=== PATIENT | male | born 1950 | race Caucasian/White ===

== ENCOUNTER → 2021-12-26 10:57 | Outpatient (BNVA) | payer MEDICARE, SELFPAY | PROVIDERS: PCP Nurse Practitioner Family; Visit Provider Nurse Practitioner Family | DX: M51.36 Other intervertebral disc degeneration, lumbar region (principal); M43.06 Spondylolysis, lumbar region; M62.830 Muscle spasm of back; M41.9 Scoliosis, unspecified | CPT/HCPCS: 99202 ==

== ENCOUNTER 2022-01-14 13:42 | Inpatient (IN) | payer MEDICARE, SELFPAY ==
[2022-01-14] VITALS (11 sets, daily range): BP systolic 95–150; BP diastolic 56–100; PULSE 56–115; RESP 12–24; TEMP 36.6–37; O2SAT 92–99; BMI 28.5
--- NOTE | ~2022-01-14 | CT_ITS ---
EXAMINATION: CT LUMBAR SPINE WITHOUT CONTRAST CLINICAL INFORMATION: Trauma COMPARISON: None TECHNIQUE: Axial images through the lumbar spine without contrast. Sagittal and coronal reconstructions on the technologist workstation were performed. This CT examination was performed using dose optimization techniques as appropriate, variously including the following: *Automated exposure control *Adjustment of mA and/or kV according to patient size (this includes techniques or standardized protocols for targeted exams where dose is matched to indication/reason for exam; i.e. extremities or head) *Use of iterative reconstruction technique DLP; 697 mGy-cm FINDINGS: There is curvature of the mid lumbar spine to the right. Bone alignment is otherwise normal. No fracture or dislocation is seen. There is multilevel degenerative disc disease. There is degenerative spondylosis at L2-L3 and L3-L4. No fracture or dislocation is seen. No soft tissue foreign body is seen. At T12-L1 there is no disc herniation protrusion or bulge. Spinal canal, lateral recesses and neural foramen are patent. At L1-L2 there is air in the disc space. There is left paracentral disc bulge. No disc herniation is seen. There is a small amount of air seen posterior to the L1 vertebral body in the spinal canal, and lateral to the L1 vertebral body and spinous process. At L2-L3 there is diffuse disc bulge. No disc herniation is seen. There is mild secondary spinal stenosis due to disc bulge and short pedicles. No disc herniation is seen. There is a small amount of air seen in the spinal canal posterior to the left side of the L2 vertebral body, lateral to the L2 vertebral body and and L2 spinous process. At L3-L4 there is diffuse disc bulge. There is no disc herniation. There is mild secondary spinal stenosis due to disc bulge and short pedicles. There is a small amount of air seen lateral to the L3 vertebral body and L3 spinous process. At L4-L5 there is diffuse disc bulge. No disc herniation is seen. There is mild secondary spinal stenosis due to disc and short pedicles. At L5-S1 there is no disc herniation protrusion or bulge. Spinal canal, lateral recesses and neural foramen are patent. Paraspinal soft tissues are otherwise unremarkable. The abdominal aorta is normal in caliber. There is diverticulosis of the colon. CT/CT lumbar spine wo con IMPRESSION: Small amount of air in the left side of the spinal canal at the L1-L2 and L2-L3 levels. Small amount of air adjacent to the left L1, L2 and L3 vertebral bodies and spinous processes.
--- NOTE | ~2022-01-14 | US_ITS ---
EXAMINATION: US RETROPERITONEAL LIMITED (RENAL ONLY) CLINICAL INFORMATION: Acute kidney injury. Evaluate for obstruction.. COMPARISON: None TECHNIQUE: Grayscale and color Doppler sonographic evaluation of the kidneys was performed. FINDINGS: RIGHT KIDNEY: 11.4 x 5.3 x 5.4 cm (SAG x AP x TRV). The kidney is normal in size, contour, and echogenicity. Renal cortical thickness is normal. No calculi or focal parenchymal lesions. No hydronephrosis. LEFT KIDNEY: 10.7 x 6.1 x 5.3 cm (SAG x AP x TRV). The kidney is normal in size, contour, and echogenicity. Renal cortical thickness is normal. No calculi or focal parenchymal lesions. No hydronephrosis. US/US renal BI IMPRESSION: No hydronephrosis. Unremarkable sonographic appearance of the kidneys.
--- NOTE | ~2022-01-14 | CT_ITS ---
EXAMINATION: CT ABDOMEN AND PELVIS WITHOUT CONTRAST CLINICAL INFORMATION: Back pain, alcohol withdrawal COMPARISON: None TECHNIQUE: Multidetector volumetric imaging was performed from the superior aspect of the liver through the pubic symphysis. Sagittal and coronal reformatted images were obtained on the technologist's workstation. This CT examination was performed using dose optimization techniques as appropriate, variously including the following: *Automated exposure control *Adjustment of mA and/or kV according to patient size (this includes techniques or standardized protocols for targeted exams where dose is matched to indication/reason for exam; i.e. extremities or head) *Use of iterative reconstruction technique DLP: 1290 mGy-cm FINDINGS: LUNG BASES: There is dependent atelectasis at the bilateral lung bases. LIVER, GALLBLADDER, AND BILIARY TREE: There is decreased attenuation of the hepatic parenchyma, likely due to hepatic steatosis. Focal fatty infiltration in the inferior right hepatic lobe. The gallbladder is unremarkable with no evidence of radiopaque gallstones, gallbladder wall thickening, or obvious pericholecystic inflammatory changes. PANCREAS: Unremarkable. SPLEEN: Unremarkable. ADRENAL GLANDS: Unremarkable. KIDNEYS AND URETERS: The kidneys are normal in size, shape, and attenuation. No hydronephrosis, hydroureter, or calculi seen. No perinephric stranding. BLADDER: Unremarkable. GASTROINTESTINAL TRACT: The stomach and small bowel are not dilated. There is scattered colonic diverticulosis without evidence of diverticulitis. Normal appendix. ABDOMINAL WALL: Small fat-containing umbilical hernia. LYMPH NODES: Normal. VASCULAR: Normal caliber of the abdominal aorta. Scattered atherosclerotic calcifications. PELVIC VISCERA: Mildly enlarged prostate gland. OSSEOUS STRUCTURES: No acute or suspicious osseous abnormality. Multilevel degenerative changes of the spine and right convex curvature of the thoracolumbar spine. CT/CT abdomen pelvis wo con IMPRESSION: No acute intra-abdominal pathology. Hepatic steatosis. Colonic diverticulosis without evidence of diverticulitis. Additional chronic findings as above.
--- NOTE | ~2022-01-14 | MR_ITS ---
EXAMINATION: MR LUMBAR SPINE WITHOUT CONTRAST CLINICAL INFORMATION: Lumbar hematoma. COMPARISON: Lumbar spine CT from 01/16/2022. TECHNIQUE: MRI of the lumbar spine was obtained using routine sequences without contrast. FINDINGS: Moderately motion degraded exam. Moderate left convex curvature of the thoracolumbar junction. Moderate right convex curvature of the lower lumbar spine. Mild left lateral translation of L1 on L2. Mild right lateral translation of L4 on L5. Mild degenerative retrolisthesis of L5 on S1. Advanced degenerative disc disease from L1-L4. Moderate degenerative disc disease at all additional lumbar levels. Associated mixed Modic type discogenic endplate changes including mild Modic type I discogenic edema from T11-L1 and L3-S1. No additional suspicious marrow edema. The vertebral body heights are well-maintained. No epidural collection. The conus medullaris terminates at the level of L1-L2. The distal spinal cord is normal in appearance. Moderate subcutaneous edema within the soft tissues of the back from T12 through the sacrum. No demonstrated discrete drainable fluid collection. No additional Significant abnormalities of the paraspinal musculature. Limited evaluation of the intra-abdominal structures without significant abnormalities. The abdominal aorta is of normal contour and caliber. AXIAL SPINAL LEVELS: L1-L2: Mild diffuse disc bulge with posterior osseous ridging. There is moderate bilateral facet joint arthropathy. There is mild bilateral neural foraminal stenosis. There is no spinal canal stenosis. L2-L3: Moderate diffuse disc bulge with posterior osseous ridging. There is moderate bilateral facet joint arthropathy. There is moderate left and mild right neural foraminal stenosis. There is stenosis of the left worse than right subarticular zones with no overt spinal canal stenosis centrally. L3-L4: Moderate diffuse disc bulge with posterior osseous ridging. There is moderate bilateral facet joint arthropathy. There is moderate left and mild right neural foraminal stenosis. There is stenosis of the left worse than right subarticular zones with no overt spinal canal stenosis centrally. L4-L5: Moderate diffuse disc bulge with superimposed small central disc extrusion with slight inferior migration. There is moderate bilateral facet joint arthropathy. There is moderate bilateral neural foraminal stenosis. There is stenosis of the subarticular zones with mild spinal canal stenosis centrally. L5-S1: Moderate diffuse disc bulge. There is moderate right and mild left facet joint arthropathy. There is severe right and moderate left neural foraminal stenosis. There is stenosis of the right subarticular zone with no overt spinal canal stenosis centrally. MR/MR lumbar spine wo con IMPRESSION: Moderate multilevel degenerative spondyloarthropathy of the lumbar spine as described in detail above. Most notably, there is mild spinal canal stenosis at L4-L5. Narrowing/stenoses of the subarticular zones from L2-S1. Moderate to severe neural foraminal stenoses from L2-S1 (worst on the right at L5-S1).
--- NOTE | ~2022-01-14 | XR_ITS ---
EXAMINATION: XR CHEST CLINICAL INFORMATION: Nausea and vomiting COMPARISON: None TECHNIQUE: Frontal view of the chest was obtained. FINDINGS: Cardiac silhouette is normal in size. The lungs are well aerated. There is no lobar consolidation. No pleural effusion or pneumothorax. XR/XR chest 1V IMPRESSION: No acute pulmonary pathology.
--- NOTE | ~2022-01-14 | CT_ITS ---
EXAMINATION: CT HEAD WITHOUT CONTRAST CLINICAL INFORMATION: Subarachnoid bleed. COMPARISON: Head CT 01/14/2022. TECHNIQUE: Contiguous axial imaging was performed from the skull base to vertex without intravenous administration of contrast. This CT examination was performed using dose optimization techniques as appropriate, variously including the following: *Automated exposure control *Adjustment of mA and/or kV according to patient size (this includes techniques or standardized protocols for targeted exams where dose is matched to indication/reason for exam; i.e. extremities or head) *Use of iterative reconstruction technique DLP: 820 mGy-cm. FINDINGS: There is no intracranial hemorrhage, large infarction, or mass lesion. There is no extra-axial collection. The ventricles are normal in size and configuration without evidence of hydrocephalus. Mild patchy hypoattenuation is seen within the cerebral white matter. The visualized paranasal sinuses and mastoid air cells are clear. CT/CT head/brain wo con IMPRESSION: No acute intracranial abnormality. Specifically, no subarachnoid hemorrhage is seen.
--- NOTE | ~2022-01-14 | CT_ITS ---
EXAMINATION: CT HEAD WITHOUT CONTRAST CLINICAL INFORMATION: Nausea, vomiting and altered mental status. COMPARISON: None TECHNIQUE: Contiguous axial imaging was performed from the skull base to vertex without intravenous administration of contrast. This CT examination was performed using dose optimization techniques as appropriate, variously including the following: *Automated exposure control *Adjustment of mA and/or kV according to patient size (this includes techniques or standardized protocols for targeted exams where dose is matched to indication/reason for exam; i.e. extremities or head) *Use of iterative reconstruction technique DLP: 896 mGy-cm FINDINGS: There is no evidence of acute intracranial hemorrhage or territorial infarction. No abnormal mass effect or midline shift is seen. Cardona to white matter differentiation is well preserved. No extra-axial fluid collections are identified. The ventricles are normal in size. There is no abnormal attenuation within the brain parenchyma. The osseous structures and soft tissues are normal. The mastoid air cells and visualized portions of the paranasal sinuses are well aerated. CT/CT head/brain wo con IMPRESSION: No acute intracranial process seen.
--- NOTE | ~2022-01-14 | XR_ITS ---
EXAMINATION: XR CHEST CLINICAL INFORMATION: New hypoxia. Question CHF. COMPARISON: 01/14/2022 TECHNIQUE: Frontal view of the chest was obtained. FINDINGS: Cardiac leads overlie the chest. The lungs are well expanded. Mild interstitial prominence which is increased from previous. No pleural effusion or pneumothorax. No dense consolidation. The cardiomediastinal silhouette is unchanged. XR/XR chest 1V IMPRESSION: Mild interstitial prominence which is increased from prior. This suggests mild edema.
--- NOTE | ~2022-01-14 | XR_ITS ---
EXAMINATION: XR CHEST CLINICAL INFORMATION: Endotracheal tube placement COMPARISON: Previous day TECHNIQUE: Frontal view of the chest was obtained. FINDINGS: Endotracheal tube terminates 4.3 cm above the ahmet. Enteric tube terminates in the left upper quadrant in the expected location of the stomach. Bilateral lower lung streaky airspace opacities. No large pleural effusion. No pneumothorax. Stable cardiomediastinal silhouette. XR/XR chest 1V IMPRESSION: Endotracheal tube terminates 4.3 cm above the ahmet. Bilateral lower lung streaky airspace opacities, likely subsegmental atelectasis.
--- NOTE | 2022-01-14 14:06 | ECG_ITS ---
Test Reason : ETOH Blood Pressure : / mmHG Vent. Rate : 078 BPM Atrial Rate : 078 BPM P-R Int : 162 ms QRS Dur : 096 ms QT Int : 400 ms P-R-T Axes : 041 -37 018 degrees QTc Int : 456 ms Normal sinus rhythm Left axis deviation Low voltage QRS Incomplete right bundle branch block Abnormal ECG No previous ECGs available Referred By: Margaux Camp Electronically Signed By:THOMAS GOODE
[2022-01-14] MEDS: ondansetron HCL 4 MG/2 ML VIAL IVPUSH (14:13)
[2022-01-14] MEDS: 0.9 % Sodium Chloride 1,000 ML 999 ML IVCONT ×3 (14:13→15:45)
[2022-01-14] MEDS: LORazepam 2 MG/ML VIAL IVPUSH ×3 (14:13→22:55)
[2022-01-14 14:38] LABS: MANUAL DIFF FLAG NO
[2022-01-14 14:40] LABS: Basophils Absolute Auto 0.2 X10*3/uL (0.0-0.2); Basophils Percent Auto 1.7 % (0-2); Eosinophils Percent Auto 0.4 % (0-4); Hematocrit 41.2 % (42.0-52.0); Hemoglobin 13.9 g/dl (14.0-18.0); Imm Gran Abs Auto 0.03 X10*3/uL (0.00-0.03); Imm Gran Pct Auto 0.3 % (0.0-0.4); Lymphocytes Absolute Auto 1.3 X10*3/uL (1.2-4.9); Lymphocytes Percent Auto 14.1 % (20-40); Mean Corpuscular HGB Conc 33.7 g/dl (31.0-36.0); Mean Corpuscular Hemoglobin 32.9 pg (27.0-33.0); Mean Corpuscular Volume 97.4 fL (80.0-98.0); Monocytes Absolute Auto 0.9 X10*3/uL (0.1-1.2); Monocytes Percent Auto 9.7 % (2-11); Neutrophils Percent Auto 73.8 % (45-73); Platelet Count 194 X10*3/uL (160-400); Red Blood Count 4.23 X10*6/uL (4.60-5.80); Red Cell Distribution Width 12.3 % (11.0-16.0); White Blood Count 9.5 X10*3/uL (4.8-10.8)
[2022-01-14 14:57] LABS: Ethanol < 10 mg/dL
[2022-01-14 15:01] LABS: Troponin-I High Sensitivity < 3.5 ng/L (<3.5-35.0)
[2022-01-14 15:02] LABS: Alanine Aminotransferase 58 U/L (0-40); Albumin Level 4.5 g/dL (3.5-5.0); Alkaline Phosphatase 78 U/L (39-117); Anion Gap 25 (12-20); Aspartate Amino Transferase 55 U/L (5-37); Bilirubin Total 1.4 mg/dL (0.0-1.0); Blood Urea Nitrogen 40 mg/dL (9-16); Calcium 10.1 mg/dL (8.4-10.2); Carbon Dioxide 19 mmol/L (22-29); Chloride 105 mmol/L (96-108); Creatinine Clr Calc Pharmacy 19.5; Estimated Glomerular Filt Rate 17; Glucose Random 200 mg/dL (60-115); Magnesium 2.7 mg/dL (1.6-2.6); Potassium 4.6 mmol/L (3.3-5.1); Sodium 144 mmol/L (135-145); Total Protein 7.8 g/dL (6.5-8.0)
--- NOTE | 2022-01-14 15:17 | ED_ITS ---
HPI - Alcohol General Chief Complaint: ETOH/Substance Use Stated Complaint: tremors, etoh Time Seen by Provider: 01/14/22 14:06 Source: patient, family and EMS Mode of arrival: EMS Limitations: no limitations History of Present Illness HPI narrative: 71-year-old male with a past medical history of Hypertension, hyperlipidemia, lumbar spondylosis/chronic back pain, GERD, alcohol abuse where his who is at bedside reports that he drinks approximately 8-10 drinks a day including beer/ wine/ shots last drink was last night who has a history of alcohol withdrawal seizures and hospitalization approximately 4 years ago presenting to the ED via EMS with complaints of diaphoresis, nausea/ vomiting and abdominal cramping /lower back pain for the past 3 days with decreased urine output. he reports associated tremors. He denies any dizziness, headaches, neck pain / stiffness, trouble swallowing or breathing, chest pain or shortness of breath, dyspnea on exertion, orthopnea, palpitations, paresthesias, dysuria, hematuria, abnormal penile discharge, recent travel or sick contacts, recent hospitalization, recent antibiotic usage or bad food exposure or any other symptoms complaints or concerns at this time. he denied any drug usage. MD complaint: alcohol withdrawal Last drink: Hours (ago) ( yesterday night) Amount of alcohol consumed: approximately 8-10 drinks a day which include beer / wine/shots of alcohol Chronic alcohol use: Yes Previous visits for alcohol intoxication: No Recent trauma: No Associated symptoms: nausea, vomiting, diaphoresis, tremors, abdominal pain and other ( and back pain) Treatments prior to arrival: none Related Data Home Medications Medication Instructions Recorded Confirmed Bacillus coagulans 250 million 250 cell PO DAILY 12/26/21 01/14/22 cell chewable tablet atorvastatin 40 mg tablet 40 mg PO DAILY 12/26/21 01/14/22 clonidine HCl 0.1 mg tablet 0.1 mg PO BID 12/26/21 01/14/22 finasteride 5 mg tablet 5 mg PO Q48H 12/26/21 01/14/22 multivitamin 1 tab PO DAILY 12/26/21 01/14/22 olmesartan 40 mg tablet 40 mg PO DAILY 12/26/21 01/14/22 omeprazole 20 mg capsule,delayed 20 mg PO BID 12/26/21 01/14/22 release propranolol 20 mg tablet 20 mg PO BID 12/26/21 01/14/22 tizanidine 4 mg tablet 4 mg PO BID 12/26/21 01/14/22 Previous Rx's Medication Instructions Recorded baclofen 20 mg tablet 20 mg PO TID PRN 30 Days #90 tab 12/26/21 Allergies Allergy/AdvReac Type Severity Reaction Status Date / Time morphine Allergy Unknown Nausea and Verified 12/26/21 11:19 Vomiting Review of Systems Review of Systems: Constitutional : No Fever, No Chills ENT/Mouth : No Ear Pain, No Nasal Congestion, No sore throat Eyes: No Eye Pain, No Swelling, No Redness Cardiovascular : No Chest Pain, No SOB Respiratory : No Cough, No Sputum, No Dyspnea Gastrointestinal : + nausea/vomiting /abdominal pain, No ingestions, No Diarrhea, No Hematochezia, No Melena Genitourinary : No Dysuria, No Urinary Frequency, No Hematuria Musculoskeletal : + back pain, No Myalgias Skin : No Skin Lesions, No rash Neuro : No Weakness, No Numbness, No Paresthesias, No Dizziness, No Headache Psych : + Anxiety, No Depression, No SI, No thoughts of self injury, No HI, No AVH, Heme/Lymph: No Lymphadenopathy Endocrine : No Polyuria, No Polydipsia Yes all other systems are reviewed and are negative [facility] Past Medical History Attestation statement: The following information was validated with the patient. Medical History (Updated 01/14/22 @ 16:16 by Papi Du MD) Alcoholic fatty liver Benign essential tremor BPH (benign prostatic hyperplasia) Elevated PSA Hyperlipidemia Hypertension Impaired fasting glucose Knee arthropathy Scoliosis Surgical History H/O prostate biopsy Family History Family History (Updated 01/14/22 @ 16:16 by Papi Du MD) Son HTN (hypertension) Father Dementia Mother Parkinson disease Social History Social History Household Members: Spouse Alcohol intake: current Alcohol intake frequency: 3 or more drinks per day Alcohol type: beer and wine Patient Tobacco Use Status: Former Tobacco user Quit Date: 2018 Advance Directives: No Advance Directives Information Provided: No Physical Exam ED Vital Signs: Vital Signs - 24 hr 01/14/22 13:55 01/14/22 14:14 01/14/22 15:30 Pulse Rate 91 94 60 Respiratory Rate 24 H 13 Blood Pressure 150/90 H 95/56 L Pulse Oximetry 93 95 01/14/22 16:15 Pulse Rate 66 Respiratory Rate 14 Blood Pressure 109/63 Pulse Oximetry 99 BMI result Body Mass Index 28.5 vital signs have been reviewed as normal and appeared to be correct. Blood pressure 150/94. Heart rate normal. Respiration rate normal. Temperature normal. Oxygen saturation normal. Appearance: Alert. Oriented X3. very diaphoretic and tremulous otherwise no other acute distress. Head: Normal external exam. Normocephalic. Atraumatic. No Marie signs noted. No raccoon eyes noted Eyes: PERRLA. EOMI. Conjunctiva and sclera normal. Eyelids normal. ENT: EAC normal. TM's Normal. Pharynx normal. Uvula midline. Moist mucous membranes. No lesions/ulcerations or masses noted on the tongue. Normal voice. No trismus noted. No drooling noted. No muffled voice noted. Neck: Normal inspection. Neck supple. FROM. No adenopathy. Thyroid Normal. No tracheal deviation noted. No crepitus is noted. No meningeal signs. No neck mass noted. No signs of trauma noted. CVS: Normal heart rate and rhythm. Heart sound normal. Pulses normal throughout. No murmurs/rales/gallops. Respiratory: No respiratory distress. Painless inspiration. Breath sounds norm al. No wheezes/rales/rhonchi noted. Chest nontender. No crepitus is noted. No signs of trauma noted. No accessory muscle usage noted or decreased air movement noted. No signs of trauma. Abdomen: Soft and Mild tenderness to palpation diffusely. Bowel sounds normal in all 4 quadrants. No distention noted. No organomegaly noted. No visible injury noted. Back: No CVA tenderness. Full range of motion noted. Nontender. No signs of trauma. Patient neuro intact bilaterally and distally on all 4 extremities. Patient's reflexes intact bilaterally and distally on all 4 extremities. No rashes/lesion/induration/fluctuance or signs of infection noted. Skin: Skin warm and dry. Normal skin color. Normal skin turgor. patient appears to have petechiae a to bilateral lower extremities. No additional rashes/lesions/lacerations noted. Extremities: No lower extremity edema. No calf tenderness is noted. Extremities exhibit normal range of motion and nontender. Neuro: Oriented X 3. No motor deficit. No sensory deficit. Reflexes normal. Normal steady gait. No focal neuro deficits noted. CN's II-XII intact bilaterally? Vascular: + radial pulses/+ 2 distal pedal pulses/+2 dorsalis pedis b/l. Normal cap refill. No cyanosis noted to upper extremity nails and lower extremity toes nails. Course Course Course Narrative: 14pm - 71-year-old male with a past medical history of Hypertension, hyperlipidemia, lumbar spondylosis/chronic back pain, GERD, alcohol abuse where his who is at bedside reports that he drinks approximately 8-10 drinks a day including beer/ wine/ shots last drink was last night who has a history of alcohol withdrawal seizures and hospitalization approximately 4 years ago presenting to the ED via EMS with complaints of diaphoresis, nausea/ vomiting and abdominal cramping /lower back pain for the past 3 days with decreased urine output. he reports associated tremors. on exam patient is very diaphoretic and tremulous and tachycardic therefore patient will be given 2 mg of IV Ativan and 4 mg of Zofran. Will obtain labs, CT scan abdomen pelvis without IV contrast provide a L of IV fluids in test the patient for COVID and re-evaluate. Reevaluation(s) Reevaluation #1: - Patient mild anemia with an H&H of 13.9/41.2. Normal platelet count. Carbon dioxide 19. Anion gap 25. BUN/ creatinine 40/3.55 no prior to compare to therefore this is most likely dehydration/YADY. Random glucose 200. Magnesium 2.7. Total bilirubin 1.4. AST / ALT 55/58. Otherwise all other labs are within normal limits. ETOH level less than 10. EKG normal sinus rhythm with ventricular rate of 78 with a left axis deviation with incomplete right bundle-branch block otherwise no acute ischemic change are noted. No prior EKGs in our system to compare to at this time - awaiting CT scan of abdomen and pelvis without IV contrast although patient will need to be admitted for dehydration/ YADY with associated nausea vomiting/alcohol withdrawal. Patient with family at bedside understand agree this plan. Time: 15:26 Reevaluation #2: - CT scan abdomen pelvis without IV contrast negative for any acute processes only revealed chronic changes. Therefore at this time speaking with Dr. East for admitting for alcohol withdrawal with tremors/ dehydration/ YADY /nausea/ vomiting abdominal cramping with a normal CT. Patient and at bedside understand agree this plan. Time: 15:59 MDM - Alcohol Differential Diagnosis Differential diagnosis: Likely alcohol intoxication, alcohol ketoacidosis, alc ohol withdrawal syndrome and alcohol withdrawal seizure Medical Records Attestation: I reviewed the patient's medical records. Lab Data Attestation: I reviewed the patient's lab results. Result diagrams: 01/14/22 14:32 01/14/22 14:32 Labs: Lab Results 01/14/22 01/14/22 01/14/22 Range/Units 14:32 14:32 14:32 WBC 9.5 (4.8-10.8) X10*3/uL RBC 4.23 L (4.60-5.80) X10*6/uL Hgb 13.9 L (14.0-18.0) g/dl Hct 41.2 L (42.0-52.0) % MCV 97.4 (80.0-98.0) fL MCH 32.9 (27.0-33.0) pg MCHC 33.7 (31.0-36.0) g/dl RDW 12.3 (11.0-16.0) % Plt Count 194 (160-400) X10*3/uL MPV 9.0 L (9.4-12.4) fL Immature Gran % (Auto) 0.3 (0.0-0.4) % Neut % (Auto) 73.8 H (45-73) % Lymph % (Auto) 14.1 L (20-40) % [place] % (Auto) 9.7 (2-11) % Eos % (Auto) 0.4 (0-4) % Baso % (Auto) 1.7 (0-2) % Lymph # (Auto) 1.3 (1.2-4.9) X10*3/uL [place] # (Auto) 0.9 (0.1-1.2) X10*3/uL Eos # (Auto) 0.0 (0.0-0.4) X10*3/uL Baso # (Auto) 0.2 (0.0-0.2) X10*3/uL Abs Immat Gran (auto) 0.03 (0.00-0.03) X10*3/uL Absolute Neuts (auto) 7.0 (2.0-8.3) x10*3/uL Absolute Nucleated RBC 0.000 (0.0-0.012) X10*3/uL Nucleated RBC % (auto) 0.0 (0.0-0.2) /100WBC PT 11.0 (9.9-13.0) SEC INR 1.0 (0.9-1.1) Sodium 144 (135-145) mmol/L Potassium 4.6 (3.3-5.1) mmol/L Chloride 105 (96-108) mmol/L Carbon Dioxide 19 L (22-29) mmol/L Anion Gap 25 H (12-20) BUN 40 H (9-16) mg/dL Creatinine 3.55 H (0.5-1.4) mg/dL Estim Creat Clear Calc 19.5 Estimated GFR 17 Random Glucose 200 H (60-115) mg/dL Calcium 10.1 (8.4-10.2) mg/dL Magnesium 2.7 H (1.6-2.6) mg/dL Total Bilirubin 1.4 H (0.0-1.0) mg/dL AST 55 H (5-37) U/L ALT 58 H (0-40) U/L Alkaline Phosphatase 78 (39-117) U/L Troponin I High Sens (<3.5-35.0) ng/L Total Protein 7.8 (6.5-8.0) g/dL Albumin 4.5 (3.5-5.0) g/dL Ethyl Alcohol mg/dL 01/14/22 01/14/22 Range/Units 14:32 14:33 WBC (4.8-10.8) X10*3/uL RBC (4.60-5.80) X10*6/uL Hgb (14.0-18.0) g/dl Hct (42.0-52.0) % MCV (80.0-98.0) fL MCH (27.0-33.0) pg MCHC (31.0-36.0) g/dl RDW (11.0-16.0) % Plt Count (160-400) X10*3/uL MPV (9.4-12.4) fL Immature Gran % (Auto) (0.0-0.4) % Neut % (Auto) (45-73) % Lymph % (Auto) (20-40) % [place] % (Auto) (2-11) % Eos % (Auto) (0-4) % Baso % (Auto) (0-2) % Lymph # (Auto) (1.2-4.9) X10*3/uL [place] # (Auto) (0.1-1.2) X10*3/uL Eos # (Auto) (0.0-0.4) X10*3/uL Baso # (Auto) (0.0-0.2) X10*3/uL Abs Immat Gran (auto) (0.00-0.03) X10*3/uL Absolute Neuts (auto) (2.0-8.3) x10*3/uL Absolute Nucleated RBC (0.0-0.012) X10*3/uL Nucleated RBC % (auto) (0.0-0.2) /100WBC PT (9.9-13.0) SEC INR (0.9-1.1) Sodium (135-145) mmol/L Potassium (3.3-5.1) mmol/L Chloride (96-108) mmol/L Carbon Dioxide (22-29) mmol/L Anion Gap (12-20) BUN (9-16) mg/dL Creatinine (0.5-1.4) mg/dL Estim Creat Clear Calc Estimated GFR Random Glucose (60-115) mg/dL Calcium (8.4-10.2) mg/dL Magnesium (1.6-2.6) mg/dL Total Bilirubin (0.0-1.0) mg/dL AST (5-37) U/L ALT (0-40) U/L Alkaline Phosphatase (39-117) U/L Troponin I High Sens < 3.5 (<3.5-35.0) ng/L Total Protein (6.5-8.0) g/dL Albumin (3.5-5.0) g/dL Ethyl Alcohol < 10 mg/dL Imaging Data CT scan abdomen pelvis without IV contrast: Attestation: I personally reviewed and interpreted this imaging study as follows: Radiologist's impression: FINDINGS: LUNG BASES: There is dependent atelectasis at the bilateral lung bases. ? LIVER, GALLBLADDER, AND BILIARY TREE: There is decreased attenuation of the hepatic parenchyma, likely due to hepatic steatosis. Focal fatty infiltration in the inferior right hepatic lobe. The gallbladder is unremarkable with no evidence of radiopaque gallstones, gallbladder wall thickening, or obvious pericholecystic inflammatory changes.? PANCREAS: Unremarkable.? SPLEEN: Unremarkable.? ADRENAL GLANDS: Unremarkable.? KIDNEYS AND URETERS: The kidneys are normal in size, shape, and attenuation. No hydronephrosis, hydroureter, or calculi seen. No perinephric stranding. ? BLADDER: Unremarkable.? GASTROINTESTINAL TRACT: The stomach and small bowel are not dilated. There is scattered colonic diverticulosis without evidence of diverticulitis. Normal appendix.? ABDOMINAL WALL: Small fat-containing umbilical hernia. LYMPH NODES: Normal. VASCULAR: Normal caliber of the abdominal aorta. Scattered atherosclerotic calcifications. PELVIC VISCERA: Mildly enlarged prostate gland.? OSSEOUS STRUCTURES: No acute or suspicious osseous abnormality. Multilevel degenerative changes of the spine and right convex curvature of the thoracolumbar spine.? CT/CT abdomen pelvis wo con IMPRESSION: No acute intra-abdominal pathology. ? Hepatic steatosis. ? Colonic diverticulosis without evidence of diverticulitis. ? Additional chronic findings as above. ECG Data ECG #1: Attestation: I personally reviewed and interpreted this ECG as follows: ECG interpretation date: 01/14/22 ECG interpretation time: 14:30 Interpretation: EKG normal sinus rhythm with ventricular rate of 78 with a left axis deviation with incomplete right bundle-branch block otherwise no acute ischemic change are noted. No prior EKGs in our system to compare to at this time Critical Care Time Critical Care Time Critical Care Time: Yes Total Critical Care Time: 60 Attestation: I personally attest to this time spent taking care of the patient Discharge Plan Discharge Clinical Impression: Acute kidney failure, Alcohol withdrawal, Nausea & vomiting, Abdominal pain, Chronic back pain Patient Disposition: Admitted As Inpatient
--- NOTE | 2022-01-14 16:05 | PHA.MEDREC ---
Pharmacy Consult ? Medication Reconciliation Pharmacy has completed the medication reconciliation. Patient's reports that she gave patient baclofen at 0700 then 1030 and he feel asleep immedatiely. Patient has valsartan on medication however olmesartan is most recently filled. The said that some medication were switched due to insurance reason. Loida Melendrez, PharmD
--- NOTE | 2022-01-14 16:15 | PC.NURSE ---
pt moved to bed 11 for better sight to nurses station.
--- NOTE | 2022-01-14 16:36 | P.HPHOSP_ITS ---
History of Present Illness Date of Service: 01/14/22 Chief Complaint: ams 71M presented with ams. patient had been feeling unwell for about 2 days ptp. normally patient has about 10 drinks of wine/beer/liwuor daily, recently has been feeling ill, nauseous, vomitting, unable to maintain any po including alcohol. noticed patient was diaphoretic, confused, jittery so she brought him to ED. in ED patient was given 4mg total ativan, labs significnat for YADY with creatinine of 3.55. (was normal in 2019). patient himself is obtunded and cannot provide history. denies NSAID use, fevers, sick contacts. Review of Systems Review of Systems: Yes Unobtainable due to mental status [facility] Medical History Alcoholic fatty liver Benign essential tremor BPH (benign prostatic hyperplasia) Elevated PSA Hyperlipidemia Hypertension Impaired fasting glucose Knee arthropathy NASREEN (obstructive sleep apnea) Scoliosis Family History Son HTN (hypertension) Father Dementia Mother Parkinson disease Surgical History H/O prostate biopsy Social History Household Members: Spouse Alcohol intake: current Alcohol intake frequency: 3 or more drinks per day Alcohol type: beer and wine Patient Tobacco Use Status: Former Tobacco user Quit Date: 2018 Advance Directives: No Advance Directives Information Provided: No Meds Allergies Allergy/AdvReac Type Severity Reaction Status Date / Time morphine Allergy Unknown Nausea and Verified 12/26/21 11:19 Vomiting Active Medications: Current Medications Sodium Chloride (Ns) 1,000 mls @ 80 mls/hr IVCONT .[id number] [facility] Pharmacy Consult (Consult Rx Perform Med Rec) 1 each MISCELLANE ONCE PRN PRN Reason: Consult order Pharmacy Consult (Consult Rx Etoh Phenob Po Dose) 1 each MISCELLANE ONCE PRN; Protocol PRN Reason: Consult order Sodium Chloride (0.9 % Sodium Chloride Flush 3 Ml Syringe) 3 ml IVFLUSH QSHIFT [facility] Home Medications Medication Instructions Recorded Confirmed Last Taken Type Bacillus coagulans 250 million 250 cell PO DAILY 12/26/21 01/14/22 01/13/22 History cell chewable tablet atorvastatin 40 mg tablet 40 mg PO DAILY 12/26/21 01/14/22 01/13/22 History clonidine HCl 0.1 mg tablet 0.1 mg PO BID 12/26/21 01/14/22 01/13/22 History finasteride 5 mg tablet 5 mg PO Q48H 12/26/21 01/14/22 01/13/22 History multivitamin 1 tab PO DAILY 12/26/21 01/14/22 01/13/22 History olmesartan 40 mg tablet 40 mg PO DAILY 12/26/21 01/14/22 01/13/22 History omeprazole 20 mg capsule,delayed 20 mg PO BID 12/26/21 01/14/22 01/13/22 History release propranolol 20 mg tablet 20 mg PO BID 12/26/21 01/14/22 01/13/22 History tizanidine 4 mg tablet 4 mg PO BID 12/26/21 01/14/22 01/13/22 History Physical Exam Vital Signs and Narrative: Vital Signs: Last Vital Signs Pulse 66 01/14/22 16:15 Resp 14 01/14/22 16:15 BP 109/63 01/14/22 16:15 Pulse Ox 99 01/14/22 16:15 BMI result Body Mass Index 28.5 General: obtunded, ill appearing, evidence of sleep apnea HEENT: atraumatic Neck: normal to visual inspection CVS: S1, S2, RRR Resp: CTA bilateral Chest: non tender GI: soft, non tender, non distended : no CVA tenderness Skin: petechial rash, mostly bilateral lower limbs Extremities: no edema Neuro: obtunded Psych: cannot assess Results Labs CBC and Chem 7: 01/14/22 14:32 01/14/22 14:32 Labs: Laboratory Results - last 24 hr 01/14/22 01/14/22 01/14/22 14:32 14:32 14:32 MCV 97.4 MCH 32.9 MCHC 33.7 RDW 12.3 Plt Count 194 MPV 9.0 L Immature Gran % (Auto) 0.3 Neut % (Auto) 73.8 H Lymph % (Auto) 14.1 L [place] % (Auto) 9.7 Eos % (Auto) 0.4 Baso % (Auto) 1.7 Lymph # (Auto) 1.3 [place] # (Auto) 0.9 Eos # (Auto) 0.0 Baso # (Auto) 0.2 Abs Immat Gran (auto) 0.03 Absolute Neuts (auto) 7.0 Absolute Nucleated RBC 0.000 Nucleated RBC % (auto) 0.0 PT 11.0 INR 1.0 Anion Gap 25 H Estim Creat Clear Calc 19.5 Estimated GFR 17 Random Glucose 200 H Calcium 10.1 Magnesium 2.7 H Total Bilirubin 1.4 H AST 55 H ALT 58 H Alkaline Phosphatase 78 Troponin I High Sens Total Protein 7.8 Albumin 4.5 Ethyl Alcohol 01/14/22 01/14/22 14:32 14:33 MCV MCH MCHC RDW Plt Count MPV Immature Gran % (Auto) Neut % (Auto) Lymph % (Auto) [place] % (Auto) Eos % (Auto) Baso % (Auto) Lymph # (Auto) [place] # (Auto) Eos # (Auto) Baso # (Auto) Abs Immat Gran (auto) Absolute Neuts (auto) Absolute Nucleated RBC Nucleated RBC % (auto) PT INR Anion Gap Estim Creat Clear Calc Estimated GFR Random Glucose Calcium Magnesium Total Bilirubin AST ALT Alkaline Phosphatase Troponin I High Sens < 3.5 Total Protein Albumin Ethyl Alcohol < 10 Imaging Radiologist's Impressions: Impressions Abdomen/Pelvis CT 01/14/22 15:05 IMPRESSION: No acute intra-abdominal pathology. Hepatic steatosis. Colonic diverticulosis without evidence of diverticulitis. Additional chronic findings as above. Assessment and Plan (1) Alcohol withdrawal: Status: Acute Plan 71M presented with ams, found to have yady and be in etoh withdrawal alochol dependence with withdrawal and fatty liver and toxic metabolic encephalopathy [place], ciwa alcohol cessation YADY likely prerenal for gi symptoms, not taking po hold arb IVF monitor closely, nephro eval check urine studies, ferguson/us- rule out obstruction glucose intolerance check a1c petechial rash ?related to YADY, monitor, follow up urine studies HTN relatively hypotensive, will hold bp meds likely nasreen will need outpatient follow up dvt prophyalxis - lovenox full code patient with severe yady, encephalopahty, ill appearing, will need atleast 2 midnight in hospital Quality Stroke Does the patient have a stroke diagnosis?: No VTE Prior VTE?: No VTE Risk Level:: Medical - moderate - high VTE Device Contraindication: Treatment Not Indicated VTE Drug Contraindication: N/A - Med Ordered
[2022-01-14 16:37] LABS: COVID-19 Test Negative (Negative); IDNOW Serial# 9DB6401D
[2022-01-14 17:15] LABS: Estimated Average Glucose 114 mg/dL; Hemoglobin A1c % 5.6 %
[2022-01-14] MEDS: 0.9 % Sodium Chloride 1,000 ML 80 ML IVCONT (17:18)
[2022-01-14] MEDS: Lactated Ringers 1,000 ML 999 ML IV ×2 (17:27→19:15)
[2022-01-14 17:52] LABS: Venous Blood Gas Refer to POC result
[2022-01-14 17:53] LABS: VBG Base Excess -7.6 mmol/L; VBG HCO3 18 mmol/L (22-26); VBG pCO2 38 mmHg; VBG pH 7.28 (7.32-7.43); VBG pO2 35 mmHg
[2022-01-14 18:02] LABS: Thyroid Stimulating Hormone 1.42 uIU/mL (0.32-4.0)
[2022-01-14 18:02] LABS: Ammonia 27 umol/L (13-55)
[2022-01-14 18:15] LABS: Alanine Aminotransferase 47 U/L (0-40); Albumin Level 3.6 g/dL (3.5-5.0); Alkaline Phosphatase 58 U/L (39-117); Anion Gap 12 (12-20); Aspartate Amino Transferase 44 U/L (5-37); Bilirubin Total 0.8 mg/dL (0.0-1.0); Blood Urea Nitrogen 37 mg/dL (9-16); C Reactive Protein 0.65 mg/dL (< or = 0.50); Calcium 8.5 mg/dL (8.4-10.2); Carbon Dioxide 24 mmol/L (22-29); Chloride 113 mmol/L (96-108); Creatinine Clr Calc Pharmacy 24.3; Estimated Glomerular Filt Rate 22; Glucose Random 94 mg/dL (60-115); Potassium 4.9 mmol/L (3.3-5.1); Sodium 144 mmol/L (135-145); Total Protein 6.3 g/dL (6.5-8.0)
[2022-01-14 18:58] LABS: Procalcitonin 0.14 ng/mL
[2022-01-14 19:21] LABS: Creatinine Urine 317.21 mg/dL; Potassium Urine Random 117.4 mmol/L; Total Protein Urine Random 45 mg/dL (<12)
[2022-01-14 19:22] LABS: Amphetamine Screen Urine Not Detected (Not Detect); Barbiturates, Urine Not Detected (Not Detect); Benzodiazepines Screen Urine POSITIVE (Not Detect); Cannabinoid Screen Urine Not Detected (Not Detect); Cocaine Screen Urine Not Detected (Not Detect); Fentanyl, urine Not Detected (Not Detect); Opiate Screen Urine POSITIVE (Not Detect); Phencyclidine Screen Urine Not Detected (Not Detect)
--- NOTE | 2022-01-14 19:22 | P.CONCC_ITS ---
History of Present Illness Data of Consult Service Date: 01/14/22 Requesting physician: Ciarra [facility] Primary Care Provider: Unknown Physician HPI Mr. Langley is being transferred to ICU bec of alcohol withdrawal, AMS, and severe NASREEN with ventilatory insufficiency and hypoxemic respiratory failure. The patient is a 71 M, new to [facility], long time drinker since he was young, starting drinking more though after he retired about two years ago.? 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 ?His thinks he had an episode of alcohol withdrawal for which he was hospitalized 3-4 years ago.? Usually drinks about 10 drinks of wine/beer/liquor daily.? The patient was recently started on baclofen 20 mg tid for back pain/spasms.? Also has history of BPH, hypertension, hyperlipidemia, impaired fasting glucose, NASREEN (refused to wear CPAP), previous knee surgery, and scoliosis.? His says he snores very severely at home.? Of note, his drinks also, but not as much as he does. Current medications include atorvastatin, clonidine, finasteride, olmesartan, propranolol, omeprazole, and tizanidine. BIBA today bec feeling unwell for about 2 days, been nauseous, vomiting, unable to take anything p.o. including alcohol. ?His noticed that he was diaphoretic, confused, jittery so called EMS. Initially on arrival to the ED, the patient was awake and talking, very diaphoretic, and very tremulous.? Heart rate was 94, blood pressure 150/90, sat was reportedly 100% on room air. Labs in the ED notable for white count 9.5, hemoglobin 13.9, normal platelet count, normal coags, sodium 144, BUN/creatinine 37/2.8, bicarb 24, potassium 4.9, glucose 94, normal total bili, borderline elevated transaminases, ammonia 27, albumin 3.6, CRP 0.6, lactic acid 1.0. Chest x-ray shows no gross infiltrates.? Head CT shows no acute process.? Abdominal CT shows hepatic steatosis, diverticulosis without diverticulitis, but otherwise no acute intra-abdominal pathology.? Spine shows multilevel degenerative changes and right convex curvature of the thoracolumbar spine.? The kidneys are normal. In ED the patient was given 2+2 mg ativan, which obtunded him, and he became hypotensive.? He started snoring severely, w bradypnea and resp pauses.? I was called to see him. On my exam in the ED, he?s snoring severely with bradypnea and pauses.? Respiratory rate is about 12.? Room air sat is about 88%. ?HR 60s, BP 124/73. ?With vigorous stimulation he wakes up and looks at me but goes right back to sleep.? Mucous membranes are dry.? His belly is mildly rotund.? He has no peripheral edema.? Carbajal catheter was just put in and his urine is concentrated yellow. My bedside ECHOCARDIOGRAM for hemodynamic monitoring:? Image quality:? Fair- good.? Findings: 1. LV wall thickness looks normal 2. LV size and function looks normal. ?EF about 60%. 3. RV looks enlarged.? Depending on the image plane, RV:LV cavity ratio is 0.9- 1.0. 4. Atria not assessed. 5. Aortic valve is trileaflet with no or AI. 6. Mitral valve normal architecture with no MR by color-flow. 7. Tricuspid valve normal architecture with trace-1+ TR.? CWD waveform measured 3.1 m/s (gradient (38mm). 8. Inferior vena cava measured 1.2-1.5 cm with good inspiratory collapse.? Estimated CVP 5 mm.? Estimated RVSP 43 mm. IMPRESSION: 1. Alcoholism with fatty liver 2. Likely mild alcoholic hepatitis.? I ordered a hepatitis screen for tomorrow morning. 3. Acute alcohol withdrawal.? Can?t give him anything else at this point. After admission to the ICU, we can give him Precedex, if nec. Might even need to be intubated. D/W his . 4. Metabolic encephalopathy.? 2? above. 5. Severe NASREEN, with gross ventilatory insufficiency.? That combined with his AMS mandates a transfer to the ICU for respiratory monitoring and management. 6. Hypoxemic resp failure.? 2? above. 7. Marked dehydration.? Give another liter bolus LR now and then continue w LR. 8. YADY. ?(I.e. likely acute vs chronic.).? Probably mainly 2? above.? Send urine lytes. 9. No evidence of sepsis.? Hypotension in the ED likely 2? hypovolemia. I d/w his that he's gotta stop drinking, and he's gotta get his sleep apnea treated if he wants to live a long life. I also indicated to her that in order for him to stop drinking, she's probably got to stop drinking also. Critical care time: 80+ minutes. [facility] Past Medical History Medical History Alcoholic fatty liver Benign essential tremor BPH (benign prostatic hyperplasia) Elevated PSA Hyperlipidemia Hypertension Impaired fasting glucose Knee arthropathy NASREEN (obstructive sleep apnea) Scoliosis Family History Family History Son HTN (hypertension) Father Dementia Mother Parkinson disease Surgical History Surgical History H/O prostate biopsy Social History Social History Household Members: Spouse Alcohol intake: current Alcohol intake frequency: 3 or more drinks per day Alcohol type: beer and wine Patient Tobacco Use Status: Former Tobacco user Quit Date: 2018 Advance Directives: No Advance Directives Information Provided: No Meds Allergies Allergy/AdvReac Type Severity Reaction Status Date / Time morphine Allergy Unknown Nausea and Verified 12/26/21 11:19 Vomiting Active Medications: Current Medications Lactated Ringer's (Lr) 1,000 mls @ 999 mls/hr IV .Q1H1M [facility] Stop: 01/14/22 19:45 Last Admin: 01/14/22 19:15 Dose: 999 mls/hr Documented by: Lactated Ringer's (Lr) 1,000 mls @ 100 mls/hr IVCONT .Q10H [facility] Pharmacy Consult (Consult Rx Perform Med Rec) 1 each MISCELLANE ONCE PRN PRN Reason: Consult order Pharmacy Consult (Consult Rx Etoh Phenob Po Dose) 1 each MISCELLANE ONCE PRN; Protocol PRN Reason: Consult order Sodium Chloride (0.9 % Sodium Chloride Flush 3 Ml Syringe) 3 ml IVFLUSH QSHIFT [facility] Home Medications Medication Instructions Recorded Confirmed Last Taken Type Bacillus coagulans 250 million 250 cell PO DAILY 12/26/21 01/14/22 01/13/22 History cell chewable tablet atorvastatin 40 mg tablet 40 mg PO DAILY 12/26/21 01/14/22 01/13/22 History clonidine HCl 0.1 mg tablet 0.1 mg PO BID 12/26/21 01/14/22 01/13/22 History finasteride 5 mg tablet 5 mg PO Q48H 12/26/21 01/14/22 01/13/22 History multivitamin 1 tab PO DAILY 12/26/21 01/14/22 01/13/22 History olmesartan 40 mg tablet 40 mg PO DAILY 12/26/21 01/14/22 01/13/22 History omeprazole 20 mg capsule,delayed 20 mg PO BID 12/26/21 01/14/22 01/13/22 History release propranolol 20 mg tablet 20 mg PO BID 12/26/21 01/14/22 01/13/22 History tizanidine 4 mg tablet 4 mg PO BID 12/26/21 01/14/22 01/13/22 History Physical Exam Vital Signs: Vital Signs: Last Vital Signs Temp 98 F 01/14/22 17:14 Pulse 56 01/14/22 19:16 Resp 12 01/14/22 19:16 BP 109/62 01/14/22 19:16 Pulse Ox 97 01/14/22 19:16 BMI result Body Mass Index 28.5 Results Labs CBC & Chem 7: 01/14/22 14:32 01/14/22 17:40 Labs: Short CBC 01/14/22 Range/Units 14:32 WBC 9.5 (4.8-10.8) X10*3/uL Hgb 13.9 L (14.0-18.0) g/dl Hct 41.2 L (42.0-52.0) % Plt Count 194 (160-400) X10*3/uL BMP 01/14/22 01/14/22 14:32 17:40 Sodium 144 144 Potassium 4.6 4.9 Chloride 105 113 H Carbon Dioxide 19 L 24 BUN 40 H 37 H Creatinine 3.55 H 2.85 H Calcium 10.1 8.5 D Cardiac Enzymes 01/14/22 Range/Units 17:40 Total Creatine Kinase 166 (38-174) U/L Liver Function 01/14/22 01/14/22 Range/Units 14:32 17:40 Total Bilirubin 1.4 H 0.8 (0.0-1.0) mg/dL AST 55 H 44 H (5-37) U/L ALT 58 H 47 H (0-40) U/L Alkaline Phosphatase 78 58 D (39-117) U/L Albumin 4.5 3.6 (3.5-5.0) g/dL Critical Care Time Critical Care Time (minutes): 90
[2022-01-14 19:24] LABS: Osmolality Urine 486 mosm/kg (373-1093)
[2022-01-14 19:37] LABS: Acetaminophen LAB < 1 mcg/mL (<30); Salicylate < 5.0 mg/dL (15-30)
[2022-01-14 19:52] LABS: Magnesium 2.5 mg/dL (1.6-2.6)
[2022-01-14] MEDS: Lactated Ringers 1,000 ML 100 ML IVCONT (21:28)
[2022-01-14] MEDS: Albuterol/Iprat 2.5/0.5MG 3 ML AMPUL.NEB INHALE (22:46)
[2022-01-14] MEDS: 0.9 % Sodium Chloride Flush 3 ML SYRINGE IVFLUSH (23:50)
[2022-01-15] VITALS (31 sets, daily range): BP systolic 99–138; BP diastolic 40–87; PULSE 62–123; RESP 11–28; TEMP 34.2–38.4; O2SAT 81–100; BMI 30.6
[2022-01-15] MEDS: LORazepam 2 MG/ML VIAL IVPUSH ×5 (02:33→14:40)
[2022-01-15] MEDS: dexmedeTOMIDidine HCL/NS 400 MCG/100 ML INFUS..BTL IVCONT (03:45)
--- NOTE | 2022-01-15 04:23 | PC.NURSE ---
Admitted from ED at 20:00. Patient was initially somnolent, snoring, easily araousable to vocal stimuli, sternal rub, or light pain. Patient is able to say one to four words that are clear and then falls asleep again. Patient is able to move all extremities. Patient's was in and completed the patient's admission questionnaire; she reports he never was diagnosed with NASREEN, but appears to be snoring and SpO2 dupping to 87 on 3 LPM overnight with sleeping and recover without other intervention repeately. Continuing on 4 LPM. Moist nonproductive cough. Patient with oral secretions that were dried and crusty, oral care with good effect. Lung sounds with scattered wheezing, mostly in the bases and posteriorly to auscultation. Patient with tmax 99.5. Carbajal catheter for I/O monitoring, straw colored urine. large round abdomen. Skin intact, but fine paplar rash to bilateral legs which patient's reports was response to prolonged sun exposure as well as on his abdomen. [place] blanchable heels.
[2022-01-15 05:39] LABS: VBG Base Excess -5.7 mmol/L; VBG HCO3 18 mmol/L (22-26); VBG pCO2 30 mmHg; VBG pH 7.38 (7.32-7.43); VBG pO2 94 mmHg
[2022-01-15 05:56] LABS: Hematocrit 35.5 % (42.0-52.0); Hemoglobin 11.6 g/dl (14.0-18.0); Mean Corpuscular HGB Conc 32.7 g/dl (31.0-36.0); Mean Corpuscular Hemoglobin 33.2 pg (27.0-33.0); Mean Corpuscular Volume 101.7 fL (80.0-98.0); Mean Platelet Volume 9.4 fL (9.4-12.4); Platelet Count 129 X10*3/uL (160-400); Red Blood Count 3.49 X10*6/uL (4.60-5.80); Red Cell Distribution Width 12.5 % (11.0-16.0); White Blood Count 8.2 X10*3/uL (4.8-10.8)
[2022-01-15 06:12] LABS: Anion Gap 15 (12-20); Blood Urea Nitrogen 31 mg/dL (9-16); Calcium 8.7 mg/dL (8.4-10.2); Carbon Dioxide 21 mmol/L (22-29); Chloride 113 mmol/L (96-108); Creatinine Clr Calc Pharmacy 43.4; Estimated Glomerular Filt Rate 42; Glucose Fasting 115 mg/dL (60-99); Potassium 4.1 mmol/L (3.3-5.1); Sodium 145 mmol/L (135-145)
[2022-01-15 06:19] LABS: B Type Natriuretic Peptide 285 pg/mL (<100)
--- NOTE | 2022-01-15 06:32 | PC.NURSE ---
Patient shaking intermit - yelling out while shaking - Franko CASTELAN did witness episodes and does not think they are seizures. Order to increase Precedex & also give Lorazepam IV 2mg - given @ 0620. Temp up to 101.3 core - Dr Deutsch made aware. CX RAY viewed by Franko castelan. Order to not give any lasix following chest x-ray.
[2022-01-15 06:42] LABS: Venous Blood Gas Refer to POC result
[2022-01-15] MEDS: propofoL 200 MG/20 ML VIAL 100 MG IVPUSH (07:43)
[2022-01-15] MEDS: Rocuronium Bromide 50 MG/5 ML VIAL IVPUSH (07:44)
[2022-01-15 07:47] LABS: HBS Num1 0.84 mIU/mL (0-7.99); HBc Num1 0.17 S/CO (0.00-0.79); HBsAGNum1 0.14 S/CO (0.00-0.99); Hepatitis B Core Antibody Nonreactive (Nonreactive); Hepatitis B Surface Antigen Negative (Negative); ~HepC Num1 0.07 S/CO (0.00-0.79); ~Hepatitis B Surface Antibody NONREACTIVE (Nonreactive); ~Hepatitis C Antibody Nonreactive (Nonreactive)
[2022-01-15] MEDS: propofoL 1,000 MG/100 ML VIAL 15.5 MG IVCONT ×3 (07:47→18:10)
--- NOTE | 2022-01-15 08:26 | W.PM.CCHP ---
Procedures Date of Service Date of Service: 01/15/22 Intubation Intubation Comments: Urgent intubation because of lack of airway control patient is severely aunts and encephalopathic very large number of secretions but definite bilateral audible rales certainly consistent with with probably acute on chronic aspiration picture at this point and 1st called the and explained the necessity and procedure to her she was in agreement based on explanation and we proceeded utilizing a glide scope with good visualization of the vocal cords and a 7.5 ET tube was able to pass through the vocal cords without complication with excellent end-tidal CO2 response and good bilateral breath sounds and then final placement of an OG tube positions of which were all corroborated by a portable chest x-ray without complication Consent for Procedure: Elective - informed consent obtained Time out performed: Yes Sedative: propofol Paralytic: rocuronium Laryngoscope: fiber optic video scope ET tube size: 7.5 ET tube uncuffed: No Tube secured depth (cm): 23 Tube secured location: lips Tube placement confirmation: visualized tube passing through cords, equal breath sounds bilaterally, no breath sounds over epigastrium and confirmation by capnometry Patient tolerated procedure: well and no complications Intubation complications: none
--- NOTE | 2022-01-15 08:29 | P.PNCC_ITS ---
Subjective Subjective Date of Service: 01/15/22 Interval History: Reviewed history physical EKG laboratory data and all radiography and and then called and spoke to the as the patient is severely encephalopathic from clear-cut alcohol withdrawal but now has a temperature spike exceeding 101 is almost the 6 to 6.5 L positive in terms of intake and output with an acute on chronic renal failure picture and persistent metabolic acidosis probably combined lactate and hyperchloremic mechanisms and and severe airway rhonchi with large amount of of secretions but certainly no no cough no display of of gag on combined sedation dexmedetomidine being the predominant mechanism along with pushes of IV Ativan and clear-cut clinical pneumonia with with severe coarse bilateral rales so based on on this lack of airway protection as I explained to the who was in agreement we went ahead with intubation utilizing propofol and rocuronium without complication and postop chest x-ray showing probable bilateral infiltrates and atelectasis as well patient oxygenating very well now switched to a propofol drip and off the dexmedetomidine and bedside echo showing normal LV and RV function with no primary valve or pericardial disease On IV propofol blood pressure still 133/87 with an oxygen saturation on 100% FiO2 of 96% in sinus at a rate of 86 no pressors required and withholding fluids for now and will will follow urine output and progression of BUN and creatinine He subsequently had a witnessed prolonged seizure responding to 2 mg of IV Ativan in this was potentially the 2nd episode that he had had still not quite at the level of status epilepticus nonetheless some going to prophylax with IV Keppra and along with maintenance and add a Versed drip to his sedation Critical Care Time (minutes): 75 Physical Exam Vital Signs: Vital Signs: Last Vital Signs Temp 100.8 F H 01/15/22 08:00 Pulse 91 01/15/22 08:00 Resp 16 01/15/22 08:00 BP 133/87 01/15/22 08:00 Pulse Ox 97 01/15/22 08:00 BMI result Body Mass Index 30.6 Clear-cut seizure activity and appear to be in nonconvulsive status actually after new movement disorder. Bedside cardiac exam by echo shows normal class 1 function Abdomen is soft nontender no organomegaly Lungs with diffuse bilateral coarse rales Objective Data Labs CBC & Chem 7: 01/15/22 05:35 01/15/22 05:35 Labs: Laboratory Results - last 24 hr 01/14/22 01/14/2201/14/22 14:32 14:32 14:32 WBC 9.5 RBC 4.23 L Hgb 13.9 L Hct 41.2 L MCV 97.4 MCH 32.9 MCHC 33.7 RDW 12.3 Plt Count 194 MPV 9.0 L Immature Gran % (Auto) 0.3 Neut % (Auto) 73.8 H Lymph % (Auto) 14.1 L [place] % (Auto) 9.7 Eos % (Auto) 0.4 Baso % (Auto) 1.7 Lymph # (Auto) 1.3 [place] # (Auto) 0.9 Eos # (Auto) 0.0 Baso # (Auto) 0.2 Abs Immat Gran (auto) 0.03 Absolute Neuts (auto) 7.0 Absolute Nucleated RBC 0.000 Nucleated RBC % (auto) 0.0 PT 11.0 INR 1.0 VBG pH VBG pCO2 VBG pO2 VBG HCO3 VBG O2 Saturation VBG Base Excess Sodium 144 Potassium 4.6 Chloride 105 Carbon Dioxide 19 L Anion Gap 25 H BUN 40 H Creatinine 3.55 H Estim Creat Clear Calc 19.5 Estimated GFR 17 Random Glucose 200 H Fasting Glucose Estimat Average Glucose Hemoglobin A1c % Lactic Acid Calcium 10.1 Magnesium 2.7 H Total Bilirubin 1.4 H AST 55 H ALT 58 H Alkaline Phosphatase 78 Ammonia Total Creatine Kinase Troponin I High Sens C-Reactive Protein B-Natriuretic Peptide Total Protein 7.8 Albumin 4.5 Procalcitonin TSH 1.42 Urine Osmolality U Random Total Protein Ur Random Sodium Ur Random Potassium Ur Random Chloride Urine Creatinine Salicylates Urine Opiates Screen Urine Fentanyl Screen Acetaminophen Ur Barbiturates Screen Ur Phencyclidine Scrn Ur Amphetamines Screen U Benzodiazepines Scrn Urine Cocaine Screen U Marijuana (THC) Screen Ethyl Alcohol COVID-19 (REED) COVID-19 Clin Com 01/14/22 01/14/22 01/14/22 14:32 14:32 14:33 WBC RBC Hgb Hct MCV MCH MCHC RDW Plt Count MPV Immature Gran % (Auto) Neut % (Auto) Lymph % (Auto) [place] % (Auto) Eos % (Auto) Baso % (Auto) Lymph # (Auto) [place] # (Auto) Eos # (Auto) Baso # (Auto) Abs Immat Gran (auto) Absolute Neuts (auto) Absolute Nucleated RBC Nucleated RBC % (auto) PT INR VBG pH VBG pCO2 VBG pO2 VBG HCO3 VBG O2 Saturation VBG Base Excess Sodium Potassium Chloride Carbon Dioxide Anion Gap BUN Creatinine Estim Creat Clear Calc Estimated GFR Random Glucose Fasting Glucose Estimat Average Glucose 114 Hemoglobin A1c % 5.6 Lactic Acid Calcium Magnesium Total Bilirubin AST ALT Alkaline Phosphatase Ammonia Total Creatine Kinase Troponin I High Sens < 3.5 C-Reactive Protein B-Natriuretic Peptide Total Protein Albumin Procalcitonin TSH Urine Osmolality U Random Total Protein Ur Random Sodium Ur Random Potassium Ur Random Chloride Urine Creatinine Salicylates Urine Opiates Screen Urine Fentanyl Screen Acetaminophen Ur Barbiturates Screen Ur Phencyclidine Scrn Ur Amphetamines Screen U Benzodiazepines Scrn Urine Cocaine Screen U Marijuana (THC) Screen Ethyl Alcohol < 10 COVID-19 (REED) COVID-[employer]app[employer] 01/14/22 01/14/22 01/14/22 15:43 17:40 17:40 WBC RBC Hgb Hct MCV MCH MCHC RDW Plt Count MPV Immature Gran % (Auto) Neut % (Auto) Lymph % (Auto) [place] % (Auto) Eos % (Auto) Baso % (Auto) Lymph # (Auto) [place] # (Auto) Eos # (Auto) Baso # (Auto) Abs Immat Gran (auto) Absolute Neuts (auto) Absolute Nucleated RBC Nucleated RBC % (auto) PT INR VBG pH VBG pCO2 VBG pO2 VBG HCO3 VBG O2 Saturation VBG Base Excess Sodium 144 Potassium 4.9 Chloride 113 H Carbon Dioxide 24 Anion Gap 12 BUN 37 H Creatinine 2.85 H Estim Creat Clear Calc 24.3 Estimated GFR 22 Random Glucose 94 D Fasting Glucose Estimat Average Glucose Hemoglobin A1c % Lactic Acid Calcium 8.5 D Magnesium 2.5 Total Bilirubin 0.8 AST 44 H ALT 47 H Alkaline Phosphatase 58 D Ammonia 27 Total Creatine Kinase 166 Troponin I High Sens C-Reactive Protein 0.65 H B-Natriuretic Peptide Total Protein 6.3 L Albumin 3.6 Procalcitonin TSH Urine Osmolality U Random Total Protein Ur Random Sodium Ur Random Potassium Ur Random Chloride Urine Creatinine Salicylates < 5.0 L Urine Opiates Screen Urine Fentanyl Screen Acetaminophen < 1 Ur Barbiturates Screen Ur Phencyclidine Scrn Ur Amphetamines Screen U Benzodiazepines Scrn Urine Cocaine Screen U Marijuana (THC) Screen Ethyl Alcohol COVID-19 (REED) Negative COVID-[employer]app[employer] See Note 01/14/22 01/14/22 01/14/22 17:40 17:41 17:46 WBC RBC Hgb Hct MCV MCH MCHC RDW Plt Count MPV Immature Gran % (Auto) Neut % (Auto) Lymph % (Auto) [place] % (Auto) Eos % (Auto) Baso % (Auto) Lymph # (Auto) [place] # (Auto) Eos # (Auto) Baso # (Auto) Abs Immat Gran (auto) Absolute Neuts (auto) Absolute Nucleated RBC Nucleated RBC % (auto) PT INR VBG pH 7.28 L VBG pCO2 38 VBG pO2 35 VBG HCO3 18 L VBG O2 Saturation 41.0 VBG Base Excess -7.6 Sodium Potassium Chloride Carbon Dioxide Anion Gap BUN Creatinine Estim Creat Clear Calc Estimated GFR Random Glucose Fasting Glucose Estimat Average Glucose Hemoglobin A1c % Lactic Acid 1.0 Calcium Magnesium Total Bilirubin AST ALT Alkaline Phosphatase Ammonia Total Creatine Kinase Troponin I High Sens C-Reactive Protein B-Natriuretic Peptide Total Protein Albumin Procalcitonin 0.14 TSH Urine Osmolality U Random Total Protein Ur Random Sodium Ur Random Potassium Ur Random Chloride Urine Creatinine Salicylates Urine Opiates Screen Urine Fentanyl Screen Acetaminophen Ur Barbiturates Screen Ur Phencyclidine Scrn Ur Amphetamines Screen U Benzodiazepines Scrn Urine Cocaine Screen U Marijuana (THC) Screen Ethyl Alcohol COVID-19 (REED) COVID-19 Clin Com 01/14/22 01/14/22 01/14/22 18:45 18:45 18:45 WBC RBC Hgb Hct MCV MCH MCHC RDW Plt Count MPV Immature Gran % (Auto) Neut % (Auto) Lymph % (Auto) [place] % (Auto) Eos % (Auto) Baso % (Auto) Lymph # (Auto) [place] # (Auto) Eos # (Auto) Baso # (Auto) Abs Immat Gran (auto) Absolute Neuts (auto) Absolute Nucleated RBC Nucleated RBC % (auto) PT INR VBG pH VBG pCO2 VBG pO2 VBG HCO3 VBG O2 Saturation VBG Base Excess Sodium Potassium Chloride Carbon Dioxide Anion Gap BUN Creatinine Estim Creat Clear Calc Estimated GFR Random Glucose Fasting Glucose Estimat Average Glucose Hemoglobin A1c % Lactic Acid Calcium Magnesium Total Bilirubin AST ALT Alkaline Phosphatase Ammonia Total Creatine Kinase Troponin I High Sens C-Reactive Protein B-Natriuretic Peptide Total Protein Albumin Procalcitonin TSH Urine Osmolality 486 U Random Total Protein 45 H Ur Random Sodium 35.0 Ur Random Potassium 117.4 Ur Random Chloride 20.0 Urine Creatinine 317.21 Salicylates Urine Opiates Screen POSITIVE H Urine Fentanyl Screen Not Detected Acetaminophen Ur Barbiturates Screen Not Detected Ur Phencyclidine Scrn Not Detected Ur Amphetamines Screen Not Detected U Benzodiazepines Scrn POSITIVE H Urine Cocaine Screen Not Detected U Marijuana (THC) Screen Not Detected Ethyl Alcohol COVID-19 (REED) COVIDdatango 01/15/22 01/15/22 01/15/22 05:32 05:35 05:35 WBC 8.2 RBC 3.49 L Hgb 11.6 L Hct 35.5 L MCV 101.7 H MCH 33.2 H MCHC 32.7 RDW 12.5 Plt Count 129 L D MPV 9.4 Immature Gran % (Auto) Neut % (Auto) Lymph % (Auto) [place] % (Auto) Eos % (Auto) Baso % (Auto) Lymph # (Auto) [place] # (Auto) Eos # (Auto) Baso # (Auto) Abs Immat Gran (auto) Absolute Neuts (auto) Absolute Nucleated RBC 0.000 Nucleated RBC % (auto) 0.0 PT INR VBG pH 7.38 VBG pCO2 30 VBG pO2 94 VBG HCO3 18 L VBG O2 Saturation 97.0 VBG Base Excess -5.7 Sodium 145 Potassium 4.1 Chloride 113 H Carbon Dioxide 21 L Anion Gap 15 BUN 31 H Creatinine 1.65 H Estim Creat Clear Calc 43.4 Estimated GFR 42 Random Glucose Fasting Glucose 115 H Estimat Average Glucose Hemoglobin A1c % Lactic Acid Calcium 8.7 Magnesium Total Bilirubin AST ALT Alkaline Phosphatase Ammonia Total Creatine Kinase Troponin I High Sens C-Reactive Protein B-Natriuretic Peptide Total Protein Albumin Procalcitonin TSH Urine Osmolality U Random Total Protein Ur Random Sodium Ur Random Potassium Ur Random Chloride Urine Creatinine Salicylates Urine Opiates Screen Urine Fentanyl Screen Acetaminophen Ur Barbiturates Screen Ur Phencyclidine Scrn Ur Amphetamines Screen U Benzodiazepines Scrn Urine Cocaine Screen U Marijuana (THC) Screen Ethyl Alcohol COVID-19 (REED) COVID-[employer] 01/15/22 05:35 WBC RBC Hgb Hct MCV MCH MCHC RDW Plt Count MPV Immature Gran % (Auto) Neut % (Auto) Lymph % (Auto) [place] % (Auto) Eos % (Auto) Baso % (Auto) Lymph # (Auto) [place] # (Auto) Eos # (Auto) Baso # (Auto) Abs Immat Gran (auto) Absolute Neuts (auto) Absolute Nucleated RBC Nucleated RBC % (auto) PT INR VBG pH VBG pCO2 VBG pO2 VBG HCO3 VBG O2 Saturation VBG Base Excess Sodium Potassium Chloride Carbon Dioxide Anion Gap BUN Creatinine Estim Creat Clear Calc Estimated GFR Random Glucose Fasting Glucose Estimat Average Glucose Hemoglobin A1c % Lactic Acid Calcium Magnesium Total Bilirubin AST ALT Alkaline Phosphatase Ammonia Total Creatine Kinase Troponin I High Sens C-Reactive Protein B-Natriuretic Peptide 285 H Total Protein Albumin Procalcitonin TSH Urine Osmolality U Random Total Protein Ur Random Sodium Ur Random Potassium Ur Random Chloride Urine Creatinine Salicylates Urine Opiates Screen Urine Fentanyl Screen Acetaminophen Ur Barbiturates Screen Ur Phencyclidine Scrn Ur Amphetamines Screen U Benzodiazepines Scrn Urine Cocaine Screen U Marijuana (THC) Screen Ethyl Alcohol COVID-19 (REED) COVID-19 Clin Com Progress Note: A&P Assessment and plan (1) Altered mental status: Status: Acute (2) Metabolic encephalopathy: Status: Acute (3) Delirium tremens: Status: Acute (4) Alcohol withdrawal seizure with delirium: Status: Acute (5) Acute hypoxemic respiratory failure: Status: Acute (6) Aspiration pneumonitis: Status: Acute (7) NASREEN (obstructive sleep apnea): Status: Acute (8) Alcoholic fatty liver: Status: Acute (9) Acute kidney failure: Status: Acute (10) Alcohol withdrawal: Status: Acute (11) Nausea & vomiting: Status: Acute (12) Hypertension: Status: Acute (13) Hyperlipidemia: Status: Acute (14) BPH (benign prostatic hyperplasia): Status: Acute Plan Patient notes is now intubated with sputum samples pending and coverage with piperacillin and vancomycin and had witnessed seizure activity so IV Versed was added as well as IV Keppra prophylaxis Quality Stroke Does the patient have a stroke diagnosis?: No VTE Prior VTE?: No VTE Risk Level:: Medical - moderate - high VTE Device Contraindication: Treatment Not Indicated VTE Drug Contraindication: N/A - Med Ordered
--- NOTE | 2022-01-15 09:45 | MHC.CM.PN ---
This financial underwriter attempted to call patient's to complete Case Management Assessment. refused to participate, stating she already answer questions from the RN last night and this financial underwriter should refer to her. Was able to review IMM w/ . CM will attempt to meet w/ patient when more awake to obtain pertinent information to discharge planning.
[2022-01-15] MEDS: Chlorhexidine Gluc Oral Rinse 15 ML MOUTHWASH BUCCAL ×3 (09:47→21:27)
[2022-01-15] MEDS: Piperacillin Sodium/Tazobactam 3.375 GM in 0.9 % Sodium Chloride 50 ML IV ×3 (09:47→21:28)
[2022-01-15] MEDS: Heparin Sodium,Porcine 5,000 UNIT/ML VIAL 5000 UNIT SUBCUT ×2 (09:47→21:27)
--- NOTE | 2022-01-15 09:53 | PHA.PROG ---
Admission Date/Time: January 14, 2022 16:32 Indication: RESPIRATORY Weight in k.1 kg Adjusted body weight in K.2 [place] body weight in K.8 Obesity Dosing Indication % IBW:26% Serum Creatinine - Last 168 Hours 01/14/22 01/14/22 01/15/22 14:32 17:40 05:35 Creatinine 3.55 H 2.85 H 1.65 H Estimated CrCl and GFR - Last 168 Hours 01/14/22 01/14/22 01/15/22 14:32 17:40 05:35 Estim Creat Clear Calc 19.5 24.3 43.4 Estimated GFR 17 22 42 Vancomycin Loading Dose: 1750 mg (20mg/kg) Current Vancomycin Dosing Regimen: 1000mg q24h Vancomycin Monitoring using AUC goal of 400 - 600 range with trough as surrogate marker: auc 579; trough 17.5 Date and Time for next Vancomycin Level to be drawn: draw 01/17 @0800 Pharmacist Comments on Vancomycin Plan: Patient SCR rapidly improving/changing load was 20mg/kg vs 25mg/kg due to YADY Trough after 2 doses for safety and efficacy Vancomycin dosing will take advantage of [employer] as a clinical decision support tool that uses Bayesian modeling to calculate individual patient's pharmacokinetic parameters and forecast the patient's drug concentration time course with the target goal AUC 24 range of 400 - 600 mg/L/hr.
[2022-01-15] MEDS: vancomycin HCL 1,000 MG, vancomycin HCL 750 MG in 0.9 % Sodium Chloride 500 ML 267.5 MG IV (10:06)
--- NOTE | 2022-01-15 12:16 | P.CONNP_ITS ---
History of Present Illness Reason for Consult Consult date: 01/15/22 Chief Complaint Chief complaint: YADY, ETOH withdrawal History of Present Illness Narrative: 71M presented with altered mental status. patient had been feeling unwell for about 2 days prior to presentation. normally patient has about 10 drinks of wine/beer/liquor daily. Recently has been feeling ill, nauseous, vomiting, unable to maintain any po including alcohol. noticed patient was diaphoretic, confused, jittery so she brought him to ED. in ED patient was given 4mg total ativan, labs significant for YADY with creatinine of 3.55. (was normal in 2019). patient himself was obtunded and cannot provide history. This morning he got intubated. Nephrology has been consulted to assist in his clinical care during his current hospital stay Review of Systems Review of Systems Yes Unobtainable due to mental condition PMFSH Past Medical History Medical History Alcoholic fatty liver Benign essential tremor BPH (benign prostatic hyperplasia) Elevated PSA Hyperlipidemia Hypertension Impaired fasting glucose Knee arthropathy NASREEN (obstructive sleep apnea) Scoliosis Family History Family History Son HTN (hypertension) Father Dementia Mother Parkinson disease Surgical History Surgical History H/O prostate biopsy Social History Social History Household Members: Spouse Housing: House Do you presently have visiting nurse or other home services: No Alcohol intake: current Alcohol intake frequency: 3 or more drinks per day Alcohol type: beer and wine Patient Tobacco Use Status: Former Tobacco user Quit Date: 09/02/2019 Tobacco use type: Cigarette Cigarette Packs Per Day: 0.5 Cigarettes Per Day: 10.0 Meds Allergies Allergy/AdvReac Type Severity Reaction Status Date / Time morphine Allergy Unknown Nausea and Verified 12/26/21 11:19 Vomiting Active Medications: Current Medications Albuterol/Ipratropium (Albuterol/Iprat 2.5/0.5mg 3 Ml Ampul.Neb) 3 ml INHALE RQ6H PRN PRN Reason: Wheezing Last Admin: 01/14/22 22:46 Dose: 3 ml Documented by: Chlorhexidine Gluconate (Chlorhexidine Gluc Oral Rinse 15 Ml Mouthwash) 15 ml BUCCAL TID [facility] Last Admin: 01/15/22 09:47 Dose: 15 ml Documented by: Heparin Sodium (Porcine) (Heparin Sodium,Porcine 5,000 Unit/Ml Vial) 5,000 unit SUBCUT Q12H [facility] Last Admin: 01/15/22 09:47 Dose: 5,000 unit Documented by: Lactated Ringer's (Lr) 1,000 mls @ 100 mls/hr IVCONT .Q10H [facility] Last Infusion: 01/15/22 07:39 Dose: Infused Documented by: Dexmedetomidine HCl (Precedex) 400 mcg in 100 mls @ 0 mls/hr IVCONT .Q0M [facility]; Protocol Last Titration: 01/15/22 07:39 Dose: Infused Documented by: Propofol (Diprivan) 1,000 mg in 100 mls @ 0 mls/hr IVCONT .Q0M [facility]; Protocol Last Admin: 01/15/22 07:47 Dose: 30 mcg/kg/min, 15.5 mls/hr Documented by: Piperacillin Sod/Tazobactam (Sod 3.375 gm/ Sodium Chloride) 50 mls @ 100 mls/hr IV Q6H [facility] Last Infusion: 01/15/22 10:17 Dose: Infused Documented by: Vancomycin HCl 1,000 mg/ (Sodium Chloride) 270 mls @ 270 mls/hr IV Q24H [facility] Lorazepam (Lorazepam 2 Mg/Ml Vial) 2 mg IVPUSH Q4H PRN PRN Reason: Alcohol Withdrawal Last Admin: 01/15/22 06:21 Dose: 2 mg Documented by: Pantoprazole Sodium (Pantoprazole Sodium 40 Mg/10 Ml Vial) 40 mg IVPUSH BID@0630,1630 [facility] Pharmacy Consult (Consult Rx Perform Med Rec) 1 each MISCELLANE ONCE PRN PRN Reason: Consult order Pharmacy Consult (Consult Rx Etoh Phenob Po Dose) 1 each MISCELLANE ONCE PRN; Protocol PRN Reason: Consult order Pharmacy Consult (Consult Rx Vancomycin Dosing) 1 each MISCELLANE DAILY PRN PRN Reason: Consult order Sodium Chloride (0.9 % Sodium Chloride Flush 3 Ml Syringe) 3 ml IVFLUSH QSHIFT [facility] Last Admin: 01/15/22 07:11 Dose: Not Given Documented by: Home Medications Medication Instructions Recorded Confirmed Last Taken Type Bacillus coagulans 250 million 250 cell PO DAILY 12/26/21 01/14/22 01/13/22 History cell chewable tablet atorvastatin 40 mg tablet 40 mg PO DAILY 12/26/21 01/14/22 01/13/22 History clonidine HCl 0.1 mg tablet 0.1 mg PO BID 12/26/21 01/14/22 01/13/22 History finasteride 5 mg tablet 5 mg PO Q48H 12/26/21 01/14/22 01/13/22 History multivitamin 1 tab PO DAILY 12/26/21 01/14/22 01/13/22 History olmesartan 40 mg tablet 40 mg PO DAILY 12/26/21 01/14/22 01/13/22 History omeprazole 20 mg capsule,delayed 20 mg PO BID 12/26/21 01/14/22 01/13/22 History release propranolol 20 mg tablet 20 mg PO BID 12/26/21 01/14/22 01/13/22 History tizanidine 4 mg tablet 4 mg PO BID 12/26/21 01/14/22 01/13/22 History Physical Exam Vital Signs: Last Vital Signs Temp 100.4 F 01/15/22 11:59 Pulse 72 01/15/22 11:59 Resp 16 01/15/22 11:59 BP 105/58 L 01/15/22 11:59 Pulse Ox 94 01/15/22 11:59 BMI result Body Mass Index 30.6 Const Other: Intubated Neck Neck: Yes supple Resp Auscultation: diminished lung sounds Cardio Rate: regular rate GI Palpation (GI): Soft to palpation Neuro Other: Sedated Results Lab Results Result Diagrams: 01/15/22 05:35 01/15/22 05:35 Lab results: Chemistry 01/14/22 01/14/22 01/15/22 14:32 17:40 05:35 Sodium 144 144 145 Potassium 4.6 4.9 4.1 Carbon Dioxide 19 L 24 21 L BUN 40 H 37 H 31 H Creatinine 3.55 H 2.85 H 1.65 H Calcium 10.1 8.5 D 8.7 Hematology 01/14/22 01/15/22 14:32 05:35 WBC 9.5 8.2 Hgb 13.9 L 11.6 L Plt Count 194 129 L D Urine Studies 01/14/22 01/14/22 18:45 18:45 Urine Osmolality 486 Urine Creatinine 317.21 Assessment and Plan (1) Acute kidney failure: Status: Acute Plan YADY due to compromise in renal perfusion & tubular injury Serum creatinine improving with current supportive care No reason to suspect GN/AIN. C/W current supportive management Shall continue to follow him closely Procedures Date of Service Date of Service: 01/15/22
[2022-01-15] MEDS: Midazolam HCl/NS 50 MG/50 ML PLAST..BAG IVCONT (13:48)
[2022-01-15] MEDS: levETIRAcetam in NaCl (iso-os) 500 MG/100 ML PIGGYBACK 400 MG IV ×2 (13:49→21:28)
[2022-01-15] MEDS: Pantoprazole Sodium 40 MG/10 ML VIAL IVPUSH (15:59)
[2022-01-15] MEDS: 0.9 % Sodium Chloride Flush 3 ML SYRINGE IVFLUSH (15:59)
--- NOTE | 2022-01-15 18:12 | PC.NURSE ---
PATIENT ALERT TO SELF, DROWSY AND CONFUSED. CIWA 17 DECISION TO INTUBATE BY MD - PATIENTS CALLED AND EDUCATED ON PLAN PRIOR TO INTUBATION. FIRST ATTEMPT FAILED, SECOND ATTEMPT SUCCESSFUL. INTUBATED AT 0745. ETT 7.5/25 AT LIP. AC 16/500/5/100% - ABLE TO TITRATE DOWN TO 50% AND TOLERATING WELL. ?SEIZURE ACTIVITY X 2 - MD CALLED BEDSIDE. LASTED BOTH TIMES ONLY A FEW SECONDS. TREATED WITH PRN ATIVAN AND KEPPRA STARTED. PATIENTS UPDATED THIS AFTERNOON BY THIS RN. BATHED, ORAL CARE, Q2HR REPO, PREVALON SYSTEM, PILLOWS AND WEDGES UTILIZED.
[2022-01-15] MEDS: Lactated Ringers 1,000 ML 100 ML IVCONT (21:31)
[2022-01-16] VITALS (31 sets, daily range): BP systolic 100–147; BP diastolic 50–94; PULSE 57–85; RESP 13–72; TEMP 34.4–37.7; O2SAT 94–100
[2022-01-16] MEDS: propofoL 1,000 MG/100 ML VIAL 15.5 MG IVCONT ×2 (00:30→05:42)
[2022-01-16] MEDS: Piperacillin Sodium/Tazobactam 3.375 GM in 0.9 % Sodium Chloride 50 ML IV ×4 (03:23→21:16)
[2022-01-16 05:10] LABS: VBG Base Excess 1.3 mmol/L; VBG HCO3 23 mmol/L (22-26); VBG pCO2 28 mmHg; VBG pH 7.52 (7.32-7.43); VBG pO2 57 mmHg
[2022-01-16 05:23] LABS: MANUAL DIFF FLAG NO
[2022-01-16 05:27] LABS: Basophils Absolute Auto 0.1 X10*3/uL (0.0-0.2); Basophils Percent Auto 1.1 % (0-2); Eosinophils Absolute Auto 0.1 X10*3/uL (0.0-0.4); Eosinophils Percent Auto 1.3 % (0-4); Hematocrit 32.3 % (42.0-52.0); Hemoglobin 10.7 g/dl (14.0-18.0); Imm Gran Abs Auto 0.03 X10*3/uL (0.00-0.03); Imm Gran Pct Auto 0.5 % (0.0-0.4); Lymphocytes Absolute Auto 1.5 X10*3/uL (1.2-4.9); Lymphocytes Percent Auto 24.7 % (20-40); Mean Corpuscular HGB Conc 33.1 g/dl (31.0-36.0); Mean Corpuscular Hemoglobin 32.8 pg (27.0-33.0); Mean Corpuscular Volume 99.1 fL (80.0-98.0); Mean Platelet Volume 9.1 fL (9.4-12.4); Monocytes Absolute Auto 0.6 X10*3/uL (0.1-1.2); Monocytes Percent Auto 9.7 % (2-11); Neutrophils Absolute Auto 3.8 x10*3/uL (2.0-8.3); Neutrophils Percent Auto 62.7 % (45-73); Platelet Count 119 X10*3/uL (160-400); Red Blood Count 3.26 X10*6/uL (4.60-5.80); Red Cell Distribution Width 12.4 % (11.0-16.0); White Blood Count 6.1 X10*3/uL (4.8-10.8)
[2022-01-16 05:42] LABS: Anion Gap 10 (12-20); Blood Urea Nitrogen 28 mg/dL (9-16); Calcium 8.6 mg/dL (8.4-10.2); Carbon Dioxide 24 mmol/L (22-29); Chloride 115 mmol/L (96-108); Creatinine Clr Calc Pharmacy 44.7; Estimated Glomerular Filt Rate 43; Glucose Random 123 mg/dL (60-115); Magnesium 2.5 mg/dL (1.6-2.6); Phosphorus 2.3 mg/dL (2.7-4.5); Potassium 3.1 mmol/L (3.3-5.1); Sodium 146 mmol/L (135-145)
[2022-01-16] MEDS: Pantoprazole Sodium 40 MG/10 ML VIAL IVPUSH ×2 (05:42→16:37)
[2022-01-16] MEDS: Midazolam HCl/NS 50 MG/50 ML PLAST..BAG IVCONT (05:43)
[2022-01-16 05:45] LABS: B Type Natriuretic Peptide 71 pg/mL (<100)
[2022-01-16] MEDS: KCl 40 mEq in 5% Dex/0.45% Sod 40 MEQ/1,000 ML IV.SOLN 80 MEQ IVCONT ×2 (06:14→19:50)
[2022-01-16 06:34] LABS: Venous Blood Gas Refer to POC result
--- NOTE | 2022-01-16 07:30 | HE.PHANOTE ---
elayne guadarrama Continue current dose, next trough is 01/17@0800 Zack
[2022-01-16] MEDS: Heparin Sodium,Porcine 5,000 UNIT/ML VIAL 5000 UNIT SUBCUT (07:42)
[2022-01-16] MEDS: Chlorhexidine Gluc Oral Rinse 15 ML MOUTHWASH BUCCAL ×3 (07:42→20:02)
[2022-01-16] MEDS: 0.9 % Sodium Chloride Flush 3 ML SYRINGE IVFLUSH ×2 (07:42→16:36)
--- NOTE | 2022-01-16 09:46 | MHC.CM.PN ---
Pt is now intubated for airway protection: cultures pending - ? seizure activity possible need for CSF analysis. Attempted to contact pt's spouse for assistance with CM assessment: no answer. Prior to admission, pt was reported to be independent with all care needs and had no services. CM to follow for finalization of d/c plans
--- NOTE | 2022-01-16 09:54 | MHC.CLN ---
F/U PT REMAINS INTUBATED AND SEDATED TF CURRENTLY TITRATING UP TO GOAL AND RUNNING AT 40ML/HR DISCUSSED AT ROUNDS WITH MAGDA AND MD-PT TOLERATING TF WELL PT TO RECEIVE PROMOTE AT MAX GOAL RATE 55ML/HR WILL PROVIDE 1320KCALS (1729KCALS WITH SEDATION; 24KCALS/KG), 82.5G PROTEIN (1.1G/KG), 1107ML OF FREE WATER FROM FORMULA RECOMMEND 240ML FREE WATER FLSUHES Q 6 HRS TO PROVIDE 2067ML TOTAL WATER FROM FORMULA AND FLUSHES (28ML/KG) NOTED PT ALSO RECEIVING IVF; ADJUST FLUSHES NEEDED MONITOR TOLERANCE, RESIDUALS AND LYTES
[2022-01-16] MEDS: levETIRAcetam in NaCl (iso-os) 500 MG/100 ML PIGGYBACK 400 MG IV (11:02)
[2022-01-16] MEDS: vancomycin HCL 1,000 MG in 0.9 % Sodium Chloride 250 ML 270 MG IV (11:03)
[2022-01-16] MEDS: propofoL 1,000 MG/100 ML VIAL 10.33 MG IVCONT ×2 (14:07→18:50)
[2022-01-16 16:21] LABS: MANUAL DIFF FLAG NO
[2022-01-16 16:24] LABS: Basophils Absolute Auto 0.1 X10*3/uL (0.0-0.2); Basophils Percent Auto 1.2 % (0-2); Eosinophils Absolute Auto 0.1 X10*3/uL (0.0-0.4); Eosinophils Percent Auto 2.1 % (0-4); Hematocrit 33.6 % (42.0-52.0); Hemoglobin 11.1 g/dl (14.0-18.0); Imm Gran Abs Auto 0.02 X10*3/uL (0.00-0.03); Imm Gran Pct Auto 0.3 % (0.0-0.4); Lymphocytes Absolute Auto 1.4 X10*3/uL (1.2-4.9); Lymphocytes Percent Auto 20.9 % (20-40); Mean Corpuscular Hemoglobin 33.1 pg (27.0-33.0); Mean Corpuscular Volume 100.3 fL (80.0-98.0); Mean Platelet Volume 8.9 fL (9.4-12.4); Monocytes Absolute Auto 0.8 X10*3/uL (0.1-1.2); Monocytes Percent Auto 11.6 % (2-11); Neutrophils Absolute Auto 4.3 x10*3/uL (2.0-8.3); Neutrophils Percent Auto 63.9 % (45-73); Platelet Count 114 X10*3/uL (160-400); Red Blood Count 3.35 X10*6/uL (4.60-5.80); Red Cell Distribution Width 12.4 % (11.0-16.0); White Blood Count 6.7 X10*3/uL (4.8-10.8)
--- NOTE | 2022-01-16 16:24 | PM.CCPN ---
Subjective Subjective Date of Service: 01/16/22 Interval History: 71-year-old male who is a chronic alcoholic presented with rapidly progressive encephalopathy and was febrile to 101 clinically delirium tremens and with lack of airway protection he was clearly aspirating so I emergently intubated him yesterday morning without complication he is down to an FiO2 of 30% now from 100% and doing well with the lobe minute ventilatory requirement and we had started him on antibiotics but I was concerned because he had seizures yesterday which we had witnessed and which did ruby using IV Ativan and Versed he was sedated with a combination of propofol and Versed had more breakthrough seizures today and they continue to recover and he did the no fit the definition of status epilepticus yesterday we had started him for recurrent seizures on Keppra today we gave him an additional bolus and increased his maintenance Keppra and had to give him a bolus of both Versed and propofol as well today currently no longer clinically seizing and at this point but we may have to go to Dilantin if it recurs my attempted to do a tap of his CSF because of the fever yesterday I was unsuccessful he has got a lot of degenerative disease he has virtually no no L3-L4 space that was unsuccessful and L5 traumatic blood vessel so I stopped the procedure and I did a repeat CT scan of his head which was negative again today but I am probably going to get the an MRI of the of the lumbar spine vena because of the need of the traumatic tap today but no further CSF attempt will be made OH waited to 1 this afternoon so that it was more than 5-1/2 hours after his DVT prophylaxis with with subcutaneous heparin and he had a normal PT INR so I will obtain an MRI and the hours that have gone by he remains afebrile so it is becoming less likely that the note that were missing a [employer] infection anyway Critical Care Time (minutes): 60 Physical Exam Vital Signs: Vital Signs: Last Vital Signs Temp 98.6 F 01/16/22 16:00 Pulse 71 01/16/22 16:00 Resp 16 01/16/22 16:00 BP 147/94 H 01/16/22 16:00 Pulse Ox 98 01/16/22 16:00 BMI result Body Mass Index 30.0 Cranial nerves are intact even though sedated and intubated Z and a positive gag pupils equal and reactive toes are appropriately downgoing bilaterally Lungs clear Abdomen soft no again a megaly Cardiac exam by bedside echo class 1 LV function Skin intact Objective Data Labs CBC & Chem 7: 01/16/22 05:04 01/16/22 05:04 Labs: Laboratory Results - last 24 hr 01/16/22 01/16/22 01/16/22 05:01 05:04 05:04 WBC 6.1 RBC 3.26 L Hgb 10.7 L Hct 32.3 L MCV 99.1 H MCH 32.8 MCHC 33.1 RDW 12.4 Plt Count 119 L MPV 9.1 L Immature Gran % (Auto) 0.5 H Neut % (Auto) 62.7 Lymph % (Auto) 24.7 [place] % (Auto) 9.7 Eos % (Auto) 1.3 Baso % (Auto) 1.1 Lymph # (Auto) 1.5 [place] # (Auto) 0.6 Eos # (Auto) 0.1 Baso # (Auto) 0.1 Abs Immat Gran (auto) 0.03 Absolute Neuts (auto) 3.8 Absolute Nucleated RBC 0.000 Nucleated RBC % (auto) 0.0 VBG pH 7.52 H VBG pCO2 28 VBG pO2 57 VBG HCO3 23 VBG O2 Saturation 87.0 VBG Base Excess 1.3 Sodium 146 H Potassium 3.1 L D Chloride 115 H Carbon Dioxide 24 Anion Gap 10 L BUN 28 H Creatinine 1.59 H Estim Creat Clear Calc 44.7 Estimated GFR 43 Random Glucose 123 H Calcium 8.6 Phosphorus 2.3 L Magnesium 2.5 B-Natriuretic Peptide 01/16/22 05:04 WBC RBC Hgb Hct MCV MCH MCHC RDW Plt Count MPV Immature Gran % (Auto) Neut % (Auto) Lymph % (Auto) [place] % (Auto) Eos % (Auto) Baso % (Auto) Lymph # (Auto) [place] # (Auto) Eos # (Auto) Baso # (Auto) Abs Immat Gran (auto) Absolute Neuts (auto) Absolute Nucleated RBC Nucleated RBC % (auto) VBG pH VBG pCO2 VBG pO2 VBG HCO3 VBG O2 Saturation VBG Base Excess Sodium Potassium Chloride Carbon Dioxide Anion Gap BUN Creatinine Estim Creat Clear Calc Estimated GFR Random Glucose Calcium Phosphorus Magnesium B-Natriuretic Peptide 71 Microbiology Microbiology Results: Microbiology 01/15/22 08:06 Sputum - Suctioned Gram Stain - Final 01/15/22 08:06 Sputum - Suctioned Sputum Culture - Preliminary 01/14/22 19:01 Blood - Venous Blood Culture - Preliminary No growth after 24 hours. 01/14/22 19:01 Blood - Venous Blood Culture - Preliminary No growth after 24 hours. Progress Note: A&P Assessment and plan (1) Aspiration pneumonitis: Status: Acute (2) Acute hypoxemic respiratory failure: Status: Acute (3) Alcohol withdrawal seizure with delirium: Status: Acute (4) Delirium tremens: Status: Acute (5) Metabolic encephalopathy: Status: Acute (6) Altered mental status: Status: Acute (7) NASREEN (obstructive sleep apnea): Status: Acute (8) Alcoholic fatty liver: Status: Acute (9) Acute kidney failure: Status: Acute (10) Alcohol withdrawal: Status: Acute (11) Nausea & vomiting: Status: Acute (12) Abdominal pain: Status: Acute (13) Chronic back pain: Status: Acute (14) Hypertension: Status: Acute (15) Hyperlipidemia: Status: Acute (16) BPH (benign prostatic hyperplasia): Status: Acute (17) Benign essential tremor: Status: Acute (18) Scoliosis: Status: Acute (19) Muscle spasm of back: Status: Acute (20) Lumbar spondylolysis: Status: Acute (21) Lumbar degenerative disc disease: Status: Acute Plan So the plan is to keep him sedated on the Versed in the propofol continue Keppra and then resort to the addition of Dilantin if there are more breakthrough seizures and await EEG in the morning and MRI of the lumbar spine hopefully tonight or early tomorrow morning and will follow his hemoglobin Quality Stroke Does the patient have a stroke diagnosis?: No VTE Prior VTE?: No VTE Risk Level:: Medical - moderate - high VTE Device Contraindication: Treatment Not Indicated VTE Drug Contraindication: N/A - Med Ordered
[2022-01-16] MEDS: levETIRAcetam in NaCl (iso-os) 1,000 MG/100 ML PIGGYBACK 400 MG IV (21:17)
[2022-01-17] VITALS (29 sets, daily range): BP systolic 131–168; BP diastolic 73–99; PULSE 11–87; RESP 12–32; TEMP 34.5–37.8; O2SAT 91–100; BMI 30.6
[2022-01-17] MEDS: propofoL 1,000 MG/100 ML VIAL 10.33 MG IVCONT (01:02)
[2022-01-17] MEDS: Midazolam HCl/NS 50 MG/50 ML PLAST..BAG IVCONT (01:11)
[2022-01-17] MEDS: 0.9 % Sodium Chloride Flush 3 ML SYRINGE IVFLUSH ×3 (01:24→23:49)
[2022-01-17] MEDS: Piperacillin Sodium/Tazobactam 3.375 GM in 0.9 % Sodium Chloride 50 ML IV ×4 (03:58→21:16)
[2022-01-17 05:30] LABS: VBG Base Excess -0.1 mmol/L; VBG HCO3 23 mmol/L (22-26); VBG pCO2 33 mmHg; VBG pH 7.44 (7.32-7.43); VBG pO2 41 mmHg
[2022-01-17 05:30] LABS: MANUAL DIFF FLAG NO
[2022-01-17 05:41] LABS: Basophils Absolute Auto 0.1 X10*3/uL (0.0-0.2); Eosinophils Absolute Auto 0.1 X10*3/uL (0.0-0.4); Eosinophils Percent Auto 2.7 % (0-4); Hematocrit 31.8 % (42.0-52.0); Hemoglobin 10.4 g/dl (14.0-18.0); Imm Gran Abs Auto 0.03 X10*3/uL (0.00-0.03); Imm Gran Pct Auto 0.6 % (0.0-0.4); Lymphocytes Absolute Auto 1.2 X10*3/uL (1.2-4.9); Lymphocytes Percent Auto 22.2 % (20-40); Mean Corpuscular HGB Conc 32.7 g/dl (31.0-36.0); Mean Corpuscular Hemoglobin 32.9 pg (27.0-33.0); Mean Corpuscular Volume 100.6 fL (80.0-98.0); Mean Platelet Volume 9.1 fL (9.4-12.4); Monocytes Absolute Auto 0.8 X10*3/uL (0.1-1.2); Monocytes Percent Auto 14.8 % (2-11); Neutrophils Absolute Auto 3.1 x10*3/uL (2.0-8.3); Neutrophils Percent Auto 58.7 % (45-73); Platelet Count 118 X10*3/uL (160-400); Red Blood Count 3.16 X10*6/uL (4.60-5.80); Red Cell Distribution Width 12.2 % (11.0-16.0); White Blood Count 5.2 X10*3/uL (4.8-10.8)
[2022-01-17] MEDS: Pantoprazole Sodium 40 MG/10 ML VIAL IVPUSH ×2 (05:41→15:56)
[2022-01-17 05:56] LABS: B Type Natriuretic Peptide 236 pg/mL (<100)
[2022-01-17 06:01] LABS: Anion Gap 7 (12-20); Blood Urea Nitrogen 21 mg/dL (9-16); Calcium 8.2 mg/dL (8.4-10.2); Carbon Dioxide 27 mmol/L (22-29); Chloride 113 mmol/L (96-108); Creatinine Clr Calc Pharmacy 53.1; Estimated Glomerular Filt Rate 52; Glucose Random 145 mg/dL (60-115); Magnesium 2.3 mg/dL (1.6-2.6); Phosphorus 3.2 mg/dL (2.7-4.5); Potassium 3.6 mmol/L (3.3-5.1); Sodium 143 mmol/L (135-145)
[2022-01-17 06:09] LABS: Venous Blood Gas Refer to POC result
[2022-01-17] MEDS: KCl 40 mEq in 5% Dex/0.45% Sod 40 MEQ/1,000 ML IV.SOLN 80 MEQ IVCONT ×2 (07:50→19:52)
[2022-01-17 08:04] LABS: Hepatitis A Antibody IgM 0.16 Index (0-0.79); ~Hepatitis A Antibody IgM Nonreactive (Nonreactive)
[2022-01-17] MEDS: levETIRAcetam in NaCl (iso-os) 1,000 MG/100 ML PIGGYBACK 400 MG IV ×2 (09:50→21:14)
[2022-01-17] MEDS: Chlorhexidine Gluc Oral Rinse 15 ML MOUTHWASH BUCCAL ×2 (09:50→20:30)
[2022-01-17] MEDS: vancomycin HCL 1,000 MG in 0.9 % Sodium Chloride 250 ML 270 MG IV (09:50)
--- NOTE | 2022-01-17 09:51 | MHC.CLN ---
F/U PT REMAINS INTUBATED DISCUSSED AT ROUNDS PT RECEIVING PROMOTE AT MAX GOAL RATE 55ML/HR WITH 240ML WATER FLSUHES Q 6 HRS PROVIDES 1320KCALS, 82.5G PROTEIN (1.1G/KG), 2067ML TOTAL WATER FROM FORMULA AND FLUSHES (28ML/KG) PT TOLERATING WELL WITH NO RESIDUALS PER NSG MONITOR TOLERANCE, RESIDUALS AND LYTES
[2022-01-17] MEDS: LORazepam 2 MG/ML VIAL 1 MG IVPUSH ×2 (13:15→19:30)
[2022-01-17 13:19] LABS: Vancomycin Trough 9.1 mcg/mL (10.0-20.0)
[2022-01-17] MEDS: dexmedeTOMIDidine HCL/NS 400 MCG/100 ML INFUS..BTL 21.53 MCG IVCONT (14:02)
--- NOTE | 2022-01-17 14:04 | HE.PHANOTE ---
Addendum entered by Isac Ramachandran [facility] 01/18/22 07:21: SCr improving to 1.26 today. Based on insight, 1500mg q24 h will give a therapeutic AUC of 451 which will correlate with a trough of 6.4. We may need to go to q12h dosing to bring the trough up but it increases our risk of toxicity. Zack Original Note: RE VANCO TROUGH WAS LOW AT 9.1 BUT RETURNED AFTER AM DOSE GIVEN. WILL GIVE A 500MG X1 DOSE NOW, THEN 1500MG Q24H. SUSPECTED AUC 481; TROUGH 7.3. TROUGH OF 9.1 CORRELATES TO AUC OF 500. NEXT TROUGH IS 5/ @0800
--- NOTE | 2022-01-17 14:41 | P.PNCC_ITS ---
Subjective Subjective Date of Service: 01/17/22 Interval History: 71-year-old man presents with altered mental status delirium tremens secondary to alcohol withdrawal intubated on the and extubated today given low FiO2 repaired mental status at least to a degree waking up without agitation understanding good cognitive function following commands had a vital capacity more than 3 times is tidal volume and we did well but within hours became a little agitated again and only oriented x1 a so we had to replace dexmedetomidine with p.r.n. use of Ativan Critical Care Time (minutes): 45 Physical Exam Vital Signs: Vital Signs: Last Vital Signs Temp 100.0 F 01/17/22 11:59 Pulse 11 L 01/17/22 14:00 Resp 22 H 01/17/22 14:00 BP 160/97 H 01/17/22 14:00 Pulse Ox 93 01/17/22 14:00 BMI result Body Mass Index 30.6 Awake but somewhat agitated only oriented x1 speech somewhat garbled but nonfocal neurologically otherwise Cardiovascular stable class 1 LV function blood pressure 140/80 oxygen saturation 95% in sinus rhythm Lungs without adventitious sounds and no accessory muscle use Abdomen soft but a little to compromised cognitively to started on any medication Objective Data Labs CBC & Chem 7: 01/17/22 05:23 01/17/22 05:23 Labs: Laboratory Results - last 24 hr 01/15/22 01/16/22 01/17/22 05:35 16:14 05:20 WBC 6.7 RBC 3.35 L Hgb 11.1 L Hct 33.6 L MCV 100.3 H MCH 33.1 H MCHC 33.0 RDW 12.4 Plt Count 114 L MPV 8.9 L Immature Gran % (Auto) 0.3 Neut % (Auto) 63.9 Lymph % (Auto) 20.9 [place] % (Auto) 11.6 H Eos % (Auto) 2.1 Baso % (Auto) 1.2 Lymph # (Auto) 1.4 [place] # (Auto) 0.8 Eos # (Auto) 0.1 Baso # (Auto) 0.1 Abs Immat Gran (auto) 0.02 Absolute Neuts (auto) 4.3 Absolute Nucleated RBC 0.000 Nucleated RBC % (auto) 0.0 VBG pH 7.44 H VBG pCO2 33 VBG pO2 41 VBG HCO3 23 VBG O2 Saturation 66.0 VBG Base Excess -0.1 Sodium Potassium Chloride Carbon Dioxide Anion Gap BUN Creatinine Estim Creat Clear Calc Estimated GFR Random Glucose Calcium Phosphorus Magnesium B-Natriuretic Peptide Vancomycin Trough Hepatitis A IgM Ab Nonreactive 01/17/22 01/17/22 01/17/22 05:23 05:23 05:23 WBC 5.2 RBC 3.16 L Hgb 10.4 L Hct 31.8 L MCV 100.6 H MCH 32.9 MCHC 32.7 RDW 12.2 Plt Count 118 L MPV 9.1 L Immature Gran % (Auto) 0.6 H Neut % (Auto) 58.7 Lymph % (Auto) 22.2 [place] % (Auto) 14.8 H Eos % (Auto) 2.7 Baso % (Auto) 1.0 Lymph # (Auto) 1.2 [place] # (Auto) 0.8 Eos # (Auto) 0.1 Baso # (Auto) 0.1 Abs Immat Gran (auto) 0.03 Absolute Neuts (auto) 3.1 Absolute Nucleated RBC 0.000 Nucleated RBC % (auto) 0.0 VBG pH VBG pCO2 VBG pO2 VBG HCO3 VBG O2 Saturation VBG Base Excess Sodium 143 Potassium 3.6 Chloride 113 H Carbon Dioxide 27 Anion Gap 7 L BUN 21 H Creatinine 1.35 Estim Creat Clear Calc 53.1 Estimated GFR 52 Random Glucose 145 H Calcium 8.2 L Phosphorus 3.2 Magnesium 2.3 B-Natriuretic Peptide 236 H Vancomycin Trough Hepatitis A IgM Ab 01/17/22 05:23 WBC RBC Hgb Hct MCV MCH MCHC RDW Plt Count MPV Immature Gran % (Auto) Neut % (Auto) Lymph % (Auto) [place] % (Auto) Eos % (Auto) Baso % (Auto) Lymph # (Auto) [place] # (Auto) Eos # (Auto) Baso # (Auto) Abs Immat Gran (auto) Absolute Neuts (auto) Absolute Nucleated RBC Nucleated RBC % (auto) VBG pH VBG pCO2 VBG pO2 VBG HCO3 VBG O2 Saturation VBG Base Excess Sodium Potassium Chloride Carbon Dioxide Anion Gap BUN Creatinine Estim Creat Clear Calc Estimated GFR Random Glucose Calcium Phosphorus Magnesium B-Natriuretic Peptide Vancomycin Trough 9.1 L Hepatitis A IgM Ab Microbiology Microbiology Results: Microbiology 01/15/22 08:06 Sputum - Suctioned Gram Stain - Final 01/15/22 08:06 Sputum - Suctioned Sputum Culture - Preliminary 01/14/22 19:01 Blood - Venous Blood Culture - Preliminary No growth after 48 hours. 01/14/22 19:01 Blood - Venous Blood Culture - Preliminary No growth after 48 hours. Progress Note: A&P Assessment and plan (1) Aspiration pneumonitis: Status: Acute (2) Acute hypoxemic respiratory failure: Status: Acute (3) Alcohol withdrawal seizure with delirium: Status: Acute (4) Delirium tremens: Status: Acute (5) Metabolic encephalopathy: Status: Acute (6) Altered mental status: Status: Acute (7) NASREEN (obstructive sleep apnea): Status: Acute (8) Alcoholic fatty liver: Status: Acute (9) Acute kidney failure: Status: Acute (10) Alcohol withdrawal: Status: Acute (11) Nausea & vomiting: Status: Acute (12) Abdominal pain: Status: Acute (13) Chronic back pain: Status: Acute (14) Hypertension: Status: Acute (15) Hyperlipidemia: Status: Acute (16) BPH (benign prostatic hyperplasia): Status: Acute (17) Benign essential tremor: Status: Acute (18) Scoliosis: Status: Acute (19) Lumbar degenerative disc disease: Status: Acute (20) Lumbar spondylolysis: Status: Acute (21) Muscle spasm of back: Status: Acute Plan The plan is to begin time and replacement even though we have fed him to because it is very difficult to rule out a Wernicke encephalopathy And dexmedetomidine and p.r.n. Ativan anglican Quality Stroke Does the patient have a stroke diagnosis?: No VTE Prior VTE?: No VTE Risk Level:: Medical - moderate - high VTE Device Contraindication: Treatment Not Indicated VTE Drug Contraindication: N/A - Med Ordered
[2022-01-17] MEDS: vancomycin HCL 500 MG in 0.9 % Sodium Chloride 100 ML 110 MG IV (14:58)
[2022-01-17] MEDS: Midazolam HCl/PF 2 MG/2 ML VIAL 5 MG IVPUSH (15:17)
--- NOTE | 2022-01-17 15:31 | MHC.CM.PN ---
Pt has been extubated to nasal cannula O2. Plan is for an EEG to assess for seizure activity. Call placed to pt's spouse Peri at 315pm: message left. Would like to complete CM assessment and formulate a d/c plan. CM to try meeting with pt on 01/18 if appropriate and/or call Peri again.
[2022-01-17] MEDS: Thiamine HCL 100 MG in 0.9 % Sodium Chloride 100 ML 202 MG IV (15:56)
[2022-01-17] MEDS: dexmedeTOMIDidine HCL/NS 400 MCG/100 ML INFUS..BTL 32.29 MCG IVCONT (16:50)
[2022-01-17 21:40] LABS: Venous Blood Gas Refer to POC result
[2022-01-17 21:41] LABS: VBG Base Excess -2.9 mmol/L; VBG HCO3 22 mmol/L (22-26); VBG pCO2 38 mmHg; VBG pH 7.36 (7.32-7.43); VBG pO2 61 mmHg
[2022-01-17] MEDS: LORazepam 2 MG/ML VIAL IVPUSH (23:10)
[2022-01-17] MEDS: Phenytoin Sodium 100 MG/2 ML VIAL 200 MG IVPUSH (23:49)
--- NOTE | 2022-01-17 23:52 | PM.CCN ---
Critical Care Event Note Summary Date of Service: 01/17/22 Code activated: No Narrative: This case had a high probability of a clinically significant, sudden, or life threatening deterioration of this patient's condition which required my full and direct attention, intervention and personal management. Critical Care Time (minutes): 15 Comment: patient started shaking, full body, he was able to talk to me during this episode. When I asked him if he was just cold or if this was a real seizure, he stops shaking and said no . we pushed 2 mg IV Ativan and patient did stop seizing . again, he was able to talk to me during this episode and was not thrashing about, he did not bite his tongue, he did not have any episodes of incontinence. Short while later, he started up again with a similar presentation. I have ordered 200 mg of Dilantin to add to the Keppra he is already on. Patient is getting transferred to [facility] [place] [place] so I communicated this to the oil well fishing tool technician. Prior to the patient physically getting transferred to [facility], he became tachypneic with a respiratory rate in the low to mid 30s. I decided to keep the patient and put the Precedex drip back on. Asked the Customer Service Driver to put a transfer order in so that this patient can remain in the ICU for further care.
[2022-01-18] VITALS (17 sets, daily range): BP systolic 123–155; BP diastolic 65–97; PULSE 62–91; RESP 16–36; TEMP 36.8–37.6; O2SAT 90–98; BMI 31.6
[2022-01-18] MEDS: dexmedeTOMIDidine HCL/NS 400 MCG/100 ML INFUS..BTL 32.29 MCG IVCONT
[2022-01-18] MEDS: dexmedeTOMIDidine HCL/NS 400 MCG/100 ML INFUS..BTL 27.98 MCG IVCONT (03:04)
[2022-01-18] MEDS: Piperacillin Sodium/Tazobactam 3.375 GM in 0.9 % Sodium Chloride 50 ML IV ×4 (03:05→21:33)
[2022-01-18] MEDS: Haloperidol Lactate 5 MG/ML VIAL 2 MG IVPUSH (04:47)
[2022-01-18] MEDS: Pantoprazole Sodium 40 MG/10 ML VIAL IVPUSH (05:09)
[2022-01-18 05:47] LABS: VBG Base Excess -1.5 mmol/L; VBG HCO3 21 mmol/L (22-26); VBG pCO2 29 mmHg; VBG pH 7.46 (7.32-7.43); VBG pO2 61 mmHg
[2022-01-18 05:50] LABS: Venous Blood Gas Refer to POC result
[2022-01-18 05:57] LABS: MANUAL DIFF FLAG NO
[2022-01-18 05:59] LABS: Basophils Absolute Auto 0.1 X10*3/uL (0.0-0.2); Basophils Percent Auto 0.9 % (0-2); Eosinophils Absolute Auto 0.1 X10*3/uL (0.0-0.4); Eosinophils Percent Auto 1.4 % (0-4); Hematocrit 33.3 % (42.0-52.0); Imm Gran Abs Auto 0.03 X10*3/uL (0.00-0.03); Imm Gran Pct Auto 0.4 % (0.0-0.4); Lymphocytes Absolute Auto 1.2 X10*3/uL (1.2-4.9); Lymphocytes Percent Auto 16.9 % (20-40); Mean Platelet Volume 9.2 fL (9.4-12.4); Monocytes Percent Auto 13.7 % (2-11); Neutrophils Absolute Auto 4.7 x10*3/uL (2.0-8.3); Neutrophils Percent Auto 66.7 % (45-73); Platelet Count 118 X10*3/uL (160-400); Red Blood Count 3.33 X10*6/uL (4.60-5.80)
[2022-01-18 06:19] LABS: Anion Gap 10 (12-20); Blood Urea Nitrogen 14 mg/dL (9-16); Calcium 8.4 mg/dL (8.4-10.2); Carbon Dioxide 23 mmol/L (22-29); Chloride 114 mmol/L (96-108); Creatinine Clr Calc Pharmacy 57.8; Estimated Glomerular Filt Rate 57; Glucose Random 132 mg/dL (60-115); Magnesium 1.7 mg/dL (1.6-2.6); Phosphorus 3.4 mg/dL (2.7-4.5); Potassium 4.1 mmol/L (3.3-5.1); Sodium 143 mmol/L (135-145)
[2022-01-18 06:21] LABS: B Type Natriuretic Peptide 928 pg/mL (<100)
[2022-01-18] MEDS: 0.9 % Sodium Chloride Flush 3 ML SYRINGE IVFLUSH ×3 (07:44→23:54)
[2022-01-18] MEDS: Thiamine HCL 100 MG in 0.9 % Sodium Chloride 100 ML 202 MG IV (07:44)
[2022-01-18] MEDS: Chlorhexidine Gluc Oral Rinse 15 ML MOUTHWASH BUCCAL (07:44)
[2022-01-18] MEDS: Heparin Sodium,Porcine 5,000 UNIT/ML VIAL 5000 UNIT SUBCUT ×2 (07:47→21:34)
[2022-01-18] MEDS: vancomycin HCL 1,500 MG in 0.9 % Sodium Chloride 500 ML 333.33 MG IV (09:16)
[2022-01-18] MEDS: Furosemide 20 MG/2 ML VIAL IVPUSH (10:11)
[2022-01-18] MEDS: levETIRAcetam in NaCl (iso-os) 1,000 MG/100 ML PIGGYBACK 400 MG IV ×2 (10:14→21:33)
--- NOTE | 2022-01-18 13:09 | MHC.CM.PN ---
Met with pt this am: alert, slow to respond and somewhat vague with responses. placed to pt's spouse Peri. She states prior to admission pt was independent with all care needs, drove, had no services and used a walker on occasion d/t lower back pain/vertebral issues. Per Peri, both her and pt are very private people and would only consider VNA if absolutely necessary and would never chose STR. Peri admits that both her and pt have increased ETOH consumption in the recent years but she has refrained for over a week in an effort to support pt once he returns to home. Peri is able to transport pt at d/c. PCP is Dr. Tessie Gracia, HCP to be attempted once pt is more reliably alert. J&J x1 with Moderna booster x1. CM to follow for finalization of d/c plans
--- NOTE | 2022-01-18 13:50 | PM.CCPN ---
Subjective Subjective Date of Service: 01/18/22 Interval History: 71-year-old male just extubated now over 24 hours who did have some hypoxia requiring a Venti mask last night with some degree of of tachypnea but also was notably agitated and with some degree of confusion ultimately requiring not only Ativan but Haldol this morning being somewhat calmer we stop the dexmedetomidine and has been wonderful since then swallow study shows that he passes without dysphagia so will probably order him a diet has not required any additional sedation no seizure activity on the Keppra and metabolically doing well with continued repairing of his renal function Critical Care Time (minutes): 45 Physical Exam Vital Signs: Vital Signs: Last Vital Signs Temp 99.3 F 01/18/22 12:00 Pulse 65 01/18/22 13:00 Resp 26 H 01/18/22 13:00 BP 134/76 01/18/22 13:00 Pulse Ox 96 01/18/22 13:00 BMI result Body Mass Index 31.[address] as well as a person and awake understandable the no from a conversational standpoint so cognitive functions improved and nonfocal Abdomen is soft no organomegaly Cardiovascular class 1 LV function by bedside echo Mild bilateral expiratory wheezing on lung exam No peripheral acrocyanosis Objective Data Labs CBC & Chem 7: 01/18/22 05:42 01/18/22 05:42 Labs: Laboratory Results - last 24 hr 01/17/22 01/18/22 01/18/22 21:36 05:41 05:42 WBC 7.0 RBC 3.33 L Hgb 11.0 L Hct 33.3 L MCV 100.0 H MCH 33.0 MCHC 33.0 RDW 12.0 Plt Count 118 L MPV 9.2 L Immature Gran % (Auto) 0.4 Neut % (Auto) 66.7 Lymph % (Auto) 16.9 L [place] % (Auto) 13.7 H Eos % (Auto) 1.4 Baso % (Auto) 0.9 Lymph # (Auto) 1.2 [place] # (Auto) 1.0 Eos # (Auto) 0.1 Baso # (Auto) 0.1 Abs Immat Gran (auto) 0.03 Absolute Neuts (auto) 4.7 Absolute Nucleated RBC 0.000 Nucleated RBC % (auto) 0.0 VBG pH 7.36 7.46 H VBG pCO2 38 29 VBG pO2 61 61 VBG HCO3 22 21 L VBG O2 Saturation 84.0 89.0 VBG Base Excess -2.9 -1.5 Sodium Potassium Chloride Carbon Dioxide Anion Gap BUN Creatinine Estim Creat Clear Calc Estimated GFR Random Glucose Calcium Phosphorus Magnesium B-Natriuretic Peptide 01/18/22 01/18/22 05:42 05:42 WBC RBC Hgb Hct MCV MCH MCHC RDW Plt Count MPV Immature Gran % (Auto) Neut % (Auto) Lymph % (Auto) [place] % (Auto) Eos % (Auto) Baso % (Auto) Lymph # (Auto) [place] # (Auto) Eos # (Auto) Baso # (Auto) Abs Immat Gran (auto) Absolute Neuts (auto) Absolute Nucleated RBC Nucleated RBC % (auto) VBG pH VBG pCO2 VBG pO2 VBG HCO3 VBG O2 Saturation VBG Base Excess Sodium 143 Potassium 4.1 Chloride 114 H Carbon Dioxide 23 Anion Gap 10 L BUN 14 Creatinine 1.26 Estim Creat Clear Calc 57.8 Estimated GFR 57 Random Glucose 132 H Calcium 8.4 Phosphorus 3.4 Magnesium 1.7 B-Natriuretic Peptide 928 H Microbiology Microbiology Results: Microbiology 01/15/22 08:06 Sputum - Suctioned Gram Stain - Final 01/15/22 08:06 Sputum - Suctioned Sputum Culture - Final Haemophilus parainfluenzae 01/14/22 19:01 Blood - Venous Blood Culture - Preliminary No growth after 48 hours. 01/14/22 19:01 Blood - Venous Blood Culture - Preliminary No growth after 48 hours. Progress Note: A&P Assessment and plan (1) Aspiration pneumonitis: Status: Acute (2) Acute hypoxemic respiratory failure: Status: Acute (3) Alcohol withdrawal seizure with delirium: Status: Acute (4) Delirium tremens: Status: Acute (5) Metabolic encephalopathy: Status: Acute (6) Altered mental status: Status: Acute (7) NASREEN (obstructive sleep apnea): Status: Acute (8) Alcoholic fatty liver: Status: Acute (9) Acute kidney failure: Status: Acute (10) Alcohol withdrawal: Status: Acute (11) Nausea & vomiting: Status: Acute (12) Abdominal pain: Status: Acute (13) Chronic back pain: Status: Acute (14) Hypertension: Status: Acute (15) Hyperlipidemia: Status: Acute (16) BPH (benign prostatic hyperplasia): Status: Acute (17) Benign essential tremor: Status: Acute (18) Scoliosis: Status: Acute (19) Muscle spasm of back: Status: Acute (20) Lumbar spondylolysis: Status: Acute (21) Lumbar degenerative disc disease: Status: Acute Plan Resolving delirium tremens slowly improving cognitive function plan to start to mobilize with Physical therapy initiate diet possible small oral dose of maintenance Ativan and I think we can stop vancomycin there was nothing in the sputum to indicate its continued use Quality Stroke Does the patient have a stroke diagnosis?: No VTE Prior VTE?: No VTE Risk Level:: Medical - moderate - high VTE Device Contraindication: Treatment Not Indicated VTE Drug Contraindication: N/A - Med Ordered
[2022-01-18] MEDS: LORazepam 0.5 MG TABLET PO ×2 (14:06→21:34)
[2022-01-19] VITALS (8 sets, daily range): BP systolic 109–172; BP diastolic 68–95; PULSE 64–105; RESP 16–20; TEMP 36.6–37.1; O2SAT 96–98
[2022-01-19] MEDS: LORazepam 2 MG/ML VIAL 1 MG IVPUSH (00:02)
[2022-01-19] MEDS: Piperacillin Sodium/Tazobactam 3.375 GM in 0.9 % Sodium Chloride 50 ML IV (04:09)
[2022-01-19 05:34] LABS: MANUAL DIFF FLAG NO
[2022-01-19 05:42] LABS: Basophils Absolute Auto 0.1 X10*3/uL (0.0-0.2); Basophils Percent Auto 0.9 % (0-2); Eosinophils Absolute Auto 0.1 X10*3/uL (0.0-0.4); Eosinophils Percent Auto 1.8 % (0-4); Hematocrit 35.8 % (42.0-52.0); Hemoglobin 11.7 g/dl (14.0-18.0); Imm Gran Abs Auto 0.06 X10*3/uL (0.00-0.03); Imm Gran Pct Auto 0.9 % (0.0-0.4); Lymphocytes Absolute Auto 1.5 X10*3/uL (1.2-4.9); Lymphocytes Percent Auto 21.9 % (20-40); Mean Corpuscular HGB Conc 32.7 g/dl (31.0-36.0); Mean Corpuscular Hemoglobin 32.5 pg (27.0-33.0); Mean Corpuscular Volume 99.4 fL (80.0-98.0); Mean Platelet Volume 8.7 fL (9.4-12.4); Monocytes Absolute Auto 1.3 X10*3/uL (0.1-1.2); Monocytes Percent Auto 18.4 % (2-11); Neutrophils Absolute Auto 3.8 x10*3/uL (2.0-8.3); Neutrophils Percent Auto 56.1 % (45-73); Platelet Count 145 X10*3/uL (160-400); Red Cell Distribution Width 11.9 % (11.0-16.0); White Blood Count 6.8 X10*3/uL (4.8-10.8)
[2022-01-19 05:57] LABS: Anion Gap 12 (12-20); Blood Urea Nitrogen 15 mg/dL (9-16); Calcium 8.5 mg/dL (8.4-10.2); Carbon Dioxide 26 mmol/L (22-29); Chloride 108 mmol/L (96-108); Estimated Glomerular Filt Rate > 60; Glucose Random 96 mg/dL (60-115); Magnesium 1.8 mg/dL (1.6-2.6); Potassium 3.4 mmol/L (3.3-5.1); Sodium 143 mmol/L (135-145)
[2022-01-19 06:05] LABS: B Type Natriuretic Peptide 195 pg/mL (<100)
[2022-01-19 06:11] LABS: VBG Base Excess -0.7 mmol/L; VBG HCO3 23 mmol/L (22-26); VBG pCO2 34 mmHg; VBG pH 7.42 (7.32-7.43); VBG pO2 50 mmHg
[2022-01-19] MEDS: LORazepam 0.5 MG TABLET PO ×2 (06:19→16:23)
[2022-01-19 06:26] LABS: Venous Blood Gas Refer to POC result
[2022-01-19 08:38] LABS: VBG Base Excess -0.7 mmol/L; VBG HCO3 23 mmol/L (22-26); VBG pCO2 34 mmHg; VBG pH 7.42 (7.32-7.43); VBG pO2 50 mmHg
[2022-01-19] MEDS: Thiamine HCL 100 MG in 0.9 % Sodium Chloride 100 ML 202 MG IV (09:22)
[2022-01-19] MEDS: 0.9 % Sodium Chloride Flush 3 ML SYRINGE IVFLUSH ×3 (09:25→21:53)
[2022-01-19] MEDS: Heparin Sodium,Porcine 5,000 UNIT/ML VIAL 5000 UNIT SUBCUT ×2 (09:27→21:53)
[2022-01-19] MEDS: cloNIDine HCL 0.1 MG TABLET PO ×2 (09:31→21:53)
[2022-01-19] MEDS: Multivitamin TABLET 1 TAB PO (09:31)
[2022-01-19] MEDS: Atorvastatin Calcium 40 MG TABLET PO (09:32)
[2022-01-19] MEDS: Omeprazole 20 MG CAPSULE.DR PO ×2 (09:32→16:21)
[2022-01-19] MEDS: levETIRAcetam in NaCl (iso-os) 1,000 MG/100 ML PIGGYBACK 400 MG IV (09:51)
--- NOTE | 2022-01-19 10:13 | MHC.CLN ---
F/U PO INTAKE 100% X 1 OF C/L DIET DIET RX: C/L-WHEN DIET TO ADVANCE; RECOMMEND REGULAR RECOMMEND ENSURE CLEAR TID TO INCREASE KCALS SUPP TO PROVIDE 720KCALS, 24G PROTEIN CAN ADVANCE TO ENSURE ENLIVE TID WHEN DIET ADVANCES MONITOR PO INTAKE CLOSELY
[2022-01-19] MEDS: Propranolol HCL 20 MG TABLET PO ×2 (11:30→21:53)
[2022-01-19] MEDS: Finasteride 5 MG TABLET PO (11:30)
--- NOTE | 2022-01-19 12:04 | PM.NEUROCN ---
History of Present Illness Data of Consult Service Date: 01/19/22 Primary Care Provider: Tessie Gracia NP HPI Reason for consult: Seizure 71 years old man with alcoholism and its multiple complications had a generalized convulsion treated with benzodiazepine. He said that he might have 1 seizure in the past. He was admitted few days ago and his alcohol level at that time was less than 15. At this time he was feeling better. There was no sign of distress. Review of Systems Review of Systems: No recent cold or flu-like illness PMFSH Past Medical History Medical History Alcoholic fatty liver Benign essential tremor BPH (benign prostatic hyperplasia) Elevated PSA Hyperlipidemia Hypertension Impaired fasting glucose Knee arthropathy NASREEN (obstructive sleep apnea) Scoliosis Family History Family History Son HTN (hypertension) Father Dementia Mother Parkinson disease Surgical History Surgical History H/O prostate biopsy Social History Social History Household Members: Spouse Housing: House Do you presently have visiting nurse or other home services: No Alcohol intake: current Alcohol intake frequency: 3 or more drinks per day Alcohol type: beer and wine Patient Tobacco Use Status: Former Tobacco user Quit Date: 09/02/2019 Tobacco use type: Cigarette Cigarette Packs Per Day: 0.5 Cigarettes Per Day: 10.0 service: No Current occupational status: retired Meds Allergies Allergy/AdvReac Type Severity Reaction Status Date / Time morphine Allergy Unknown Nausea and Verified 12/26/21 11:19 Vomiting Active Medications: Current Medications Albuterol/Ipratropium (Albuterol/Iprat 2.5/0.5mg 3 Ml Ampul.Neb) 3 ml INHALE RQ6H PRN PRN Reason: Wheezing Last Admin: 01/14/22 22:46 Dose: 3 ml Documented by: Atorvastatin Calcium (Atorvastatin Calcium 40 Mg Tablet) 40 mg PO DAILY MARIANGEL Last Admin: 01/19/22 09:32 Dose: 40 mg Documented by: Clonidine HCl (Clonidine Hcl 0.1 Mg Tablet) 0.1 mg PO BID MARIANGEL; Protocol Last Admin: 01/19/22 09:31 Dose: 0.1 mg Documented by: Doxycycline Hyclate (Doxycycline Hyclate 100 Mg Tablet) 100 mg PO Q12H [facility] Last Admin: 01/19/22 09:32 Dose: 100 mg Documented by: Finasteride (Finasteride 5 Mg Tablet) 5 mg PO Q48H [facility] Last Admin: 01/19/22 11:30 Dose: 5 mg Documented by: Heparin Sodium (Porcine) (Heparin Sodium,Porcine 5,000 Unit/Ml Vial) 5,000 unit SUBCUT Q12H [facility] Last Admin: 01/19/22 09:27 Dose: 5,000 unit Documented by: Levetiracetam (Keppra) 1,000 mg in 100 mls @ 400 mls/hr IV Q12H [facility] Last Infusion: 01/19/22 10:19 Dose: Infused Documented by: Thiamine HCl 100 mg/ Sodium (Chloride) 101 mls @ 202 mls/hr IV DAILY [facility] Last Infusion: 01/19/22 10:19 Dose: Infused Documented by: Lorazepam (Lorazepam 2 Mg/Ml Vial) 1 mg IVPUSH Q4H PRN PRN Reason: Alcohol Withdrawal Last Admin: 01/19/22 00:02 Dose: 1 mg Documented by: Lorazepam (Lorazepam 0.5 Mg Tablet) 0.5 mg PO Q8H [facility] Last Admin: 01/19/22 06:19 Dose: 0.5 mg Documented by: Multivitamins/Vitamin C (Multivitamin Tablet) 1 tab PO DAILY [facility] Last Admin: 01/19/22 09:31 Dose: 1 tab Documented by: Omeprazole (Omeprazole 20 Mg Capsule.Dr) 20 mg PO BID@0630,1630 [facility] Last Admin: 01/19/22 09:32 Dose: 20 mg Documented by: Pharmacy Consult (Consult Rx Perform Med Rec) 1 each MISCELLANE ONCE PRN PRN Reason: Consult order Pharmacy Consult (Consult Rx Etoh Phenob Po Dose) 1 each MISCELLANE ONCE PRN; Protocol PRN Reason: Consult order Propranolol HCl (Propranolol Hcl 20 Mg Tablet) 20 mg PO BID [facility]; Protocol Last Admin: 01/19/22 11:30 Dose: 20 mg Documented by: Sodium Chloride (0.9 % Sodium Chloride Flush 3 Ml Syringe) 3 ml IVFLUSH QSHIFT [facility] Last Admin: 01/19/22 09:25 Dose: 3 ml Documented by: Valsartan (Valsartan 160 Mg Tablet) 160 mg PO DAILY MARIANGEL Home Medications Medication Instructions Recorded Confirmed Last Taken Type Bacillus coagulans 250 million 250 cell PO DAILY 12/26/21 01/14/22 01/13/22 History cell chewable tablet atorvastatin 40 mg tablet 40 mg PO DAILY 12/26/21 01/14/22 01/13/22 History clonidine HCl 0.1 mg tablet 0.1 mg PO BID 12/26/21 01/14/22 01/13/22 History finasteride 5 mg tablet 5 mg PO Q48H 12/26/21 01/14/22 01/13/22 History multivitamin 1 tab PO DAILY 12/26/21 01/14/22 01/13/22 History olmesartan 40 mg tablet 40 mg PO DAILY 12/26/21 01/14/22 01/13/22 History omeprazole 20 mg capsule,delayed 20 mg PO BID 12/26/21 01/14/22 01/13/22 History release propranolol 20 mg tablet 20 mg PO BID 12/26/21 01/14/22 01/13/22 History tizanidine 4 mg tablet 4 mg PO BID 12/26/21 01/14/22 01/13/22 History Physical Exam Vital Signs: Vital Signs: Last Vital Signs Temp 98.3 F 01/19/22 11:21 Pulse 105 H 01/19/22 11:21 Resp 20 01/19/22 11:21 BP 147/86 H 01/19/22 11:21 Pulse Ox 96 01/19/22 11:21 BMI result Body Mass Index 30.0 Neuro: Other: He was alert and awake with normal spontaneity of speech fluency comprehension and anxious affect. Face was symmetrical. [id number] bilateral hand tremor and ataxia was noted. Deep tendon reflexes are absent with flexor plantars. Speech was normal Results Labs CBC & Chem 7: 01/19/22 05:28 01/19/22 05:28 Labs: Short CBC 01/19/22 Range/Units 05:28 WBC 6.8 (4.8-10.8) X10*3/uL Hgb 11.7 L (14.0-18.0) g/dl Hct 35.8 L (42.0-52.0) % Plt Count 145 L (160-400) X10*3/uL BMP 01/19/22 05:28 Sodium 143 Potassium 3.4 Chloride 108 Carbon Dioxide 26 BUN 15 Creatinine 1.12 Calcium [address] revealed moderately severe diffuse cerebral and cerebellar central cortical atrophy. Microbiology Microbiology Results: Microbiology 01/15/22 08:06 Sputum - Suctioned Gram Stain - Final 01/15/22 08:06 Sputum - Suctioned Sputum Culture - Final Haemophilus parainfluenzae 01/14/22 19:01 Blood - Venous Blood Culture - Preliminary No growth after 48 hours. 01/14/22 19:01 Blood - Venous Blood Culture - Preliminary No growth after 48 hours. Assessment and Plan (1) Alcohol withdrawal seizure with delirium: Status: Acute 71 years old man with alcoholism and its multiple effects on his body including brain and liver. He had a generalized convulsion that happened at least few days after he was admitted. This is not typical of alcohol withdrawal seizure but. With the amount of brain pathology and history of alcoholism, his risk of epilepsy was significant. For now I would suggest putting him on levetiracetam 500 mg twice a day, which can be stopped after a month if his EEG would be okay. Procedures Date of Service Date of Service: 01/19/22
--- NOTE | 2022-01-19 12:31 | MHC.CM.PN ---
met with pt and family filed hcp dicussed physical therrpies recommendation for str pt does not want rehab wants to go home xiomy spivey made aware,referrals made ,imm updated
--- NOTE | 2022-01-19 12:35 | HO.PM.IMPN ---
Subjective Subjective Date of Service: 01/19/22 Interval History: being followed for alcohol withdrawal seizures, tolerating clear liquid diet denies cough, no dysphagia, no overnight fever chills, not on home oxygen, no recurrent seizures in last 24 hours, denies chest pain, no palpitations Review of Systems [employer] no headache no dizziness CVS no chest pain, no palpatations GI no nausea, no vomiting Review of Systems: Yes all other systems are reviewed and are negative Physical Exam Vital Signs: Vital Signs: Last Vital Signs Temp 98.3 F 01/19/22 11:21 Pulse 105 H 01/19/22 11:21 Resp 20 01/19/22 11:21 BP 147/86 H 01/19/22 11:21 Pulse Ox 96 01/19/22 11:21 BMI result Body Mass Index 30.0 Const: Other: General resting comfortably in no acute distress. Neck no JVD. CVS regular rate rhythm, Respiratory lungs clear to auscultation, no respiratory distress, no wheeze, no rhonchi. Gastrointestinal abdomen soft, nontender, bowel sounds audible, Extremities no edema. Neuro nonfocal , speech clear, bilateral hand tremors. Skin no rash psych appropriate affect Objective Data Active Medications Albuterol/Ipratropium (Albuterol/Iprat 2.5/0.5mg 3 Ml Ampul.Neb) 3 ml INHALE RQ6H PRN PRN Reason: Wheezing Last Admin: 01/14/22 22:46 Dose: 3 ml Documented by: FIDEL Atorvastatin Calcium (Atorvastatin Calcium 40 Mg Tablet) 40 mg PO DAILY [facility] Last Admin: 01/19/22 09:32 Dose: 40 mg Documented by: SOHAN Clonidine HCl (Clonidine Hcl 0.1 Mg Tablet) 0.1 mg PO BID [facility]; Protocol Last Admin: 01/19/22 09:31 Dose: 0.1 mg Documented by: SOHAN Doxycycline Hyclate (Doxycycline Hyclate 100 Mg Tablet) 100 mg PO Q12H [facility] Last Admin: 01/19/22 09:32 Dose: 100 mg Documented by: SOHAN Finasteride (Finasteride 5 Mg Tablet) 5 mg PO Q48H [facility] Last Admin: 01/19/22 11:30 Dose: 5 mg Documented by: SOHAN Heparin Sodium (Porcine) (Heparin Sodium,Porcine 5,000 Unit/Ml Vial) 5,000 unit SUBCUT Q12H [facility] Last Admin: 01/19/22 09:27 Dose: 5,000 unit Documented by: SOHAN Thiamine HCl 100 mg/ Sodium (Chloride) 101 mls @ 202 mls/hr IV DAILY [facility] Last Infusion: 01/19/22 10:19 Dose: 0 mls/hr Documented by: SOHAN Levetiracetam (Levetiracetam 500 Mg Tablet) 500 mg PO BID [facility] Lorazepam (Lorazepam 0.5 Mg Tablet) 0.5 mg PO Q8H PRN PRN Reason: Anxiety Multivitamins/Vitamin C (Multivitamin Tablet) 1 tab PO DAILY [facility] Last Admin: 01/19/22 09:31 Dose: 1 tab Documented by: SOHAN Omeprazole (Omeprazole 20 Mg Capsule.Dr) 20 mg PO BID@0630,1630 [facility] Last Admin: 01/19/22 09:32 Dose: 20 mg Documented by: SOHAN Pharmacy Consult (Consult Rx Perform Med Rec) 1 each MISCELLANE ONCE PRN PRN Reason: Consult order Pharmacy Consult (Consult Rx Etoh Phenob Po Dose) 1 each MISCELLANE ONCE PRN; Protocol PRN Reason: Consult order Propranolol HCl (Propranolol Hcl 20 Mg Tablet) 20 mg PO BID [facility]; Protocol Last Admin: 01/19/22 11:30 Dose: 20 mg Documented by: SOHAN Sodium Chloride (0.9 % Sodium Chloride Flush 3 Ml Syringe) 3 ml IVFLUSH QSHIFT [facility] Last Admin: 01/19/22 09:25 Dose: 3 ml Documented by: SOHAN Valsartan (Valsartan 160 Mg Tablet) 160 mg PO DAILY [facility] Labs CBC & Chem 7: 01/19/22 05:28 01/19/22 05:28 Labs: Laboratory Results - last 24 hr 01/19/22 01/19/22 01/19/22 05:28 05:28 05:28 MCV 99.4 H MCH 32.5 MCHC 32.7 RDW 11.9 Plt Count 145 L MPV 8.7 L Immature Gran % (Auto) 0.9 H Neut % (Auto) 56.1 Lymph % (Auto) 21.9 [place] % (Auto) 18.4 H Eos % (Auto) 1.8 Baso % (Auto) 0.9 Lymph # (Auto) 1.5 [place] # (Auto) 1.3 H Eos # (Auto) 0.1 Baso # (Auto) 0.1 Abs Immat Gran (auto) 0.06 H Absolute Neuts (auto) 3.8 Absolute Nucleated RBC 0.000 Nucleated RBC % (auto) 0.0 VBG pH VBG pCO2 VBG pO2 VBG HCO3 VBG O2 Saturation VBG Base Excess Anion Gap 12 Estim Creat Clear Calc 65.0 Estimated GFR > 60 Random Glucose 96 Calcium 8.5 Phosphorus 4.0 Magnesium 1.8 B-Natriuretic Peptide 195 H 01/19/22 01/19/22 05:28 05:36 MCV MCH MCHC RDW Plt Count MPV Immature Gran % (Auto) Neut % (Auto) Lymph % (Auto) [place] % (Auto) Eos % (Auto) Baso % (Auto) Lymph # (Auto) [place] # (Auto) Eos # (Auto) Baso # (Auto) Abs Immat Gran (auto) Absolute Neuts (auto) Absolute Nucleated RBC Nucleated RBC % (auto) VBG pH 7.42 7.42 VBG pCO2 34 34 VBG pO2 50 50 VBG HCO3 23 23 VBG O2 Saturation 75.0 75.0 VBG Base Excess -0.7 -0.7 Anion Gap Estim Creat Clear Calc Estimated GFR Random Glucose Calcium Phosphorus Magnesium B-Natriuretic Peptide Microbiology Microbiology Results: Microbiology 01/15/22 08:06 Gram Stain - Final Sputum - Suctioned Sputum Culture - Final Haemophilus parainfluenzae Assessment and Plan (1) Aspiration pneumonitis: Status: Acute (2) Acute hypoxemic respiratory failure: Status: Acute (3) Alcohol withdrawal seizure with delirium: Status: Acute (4) Delirium tremens: Status: Acute (5) Metabolic encephalopathy: Status: Acute (6) NASREEN (obstructive sleep apnea): Status: Acute Plan 71-year-old chronic alcoholic male presented to emergency room with symptoms of not feeling well with nausea vomiting unable to take anything by mouth in the ER patient was noted to be confused, diaphoretic, head CT, abdominal CT showed no acute process but showed hepatic steatosis, patient in the emergency room was treated with Ativan patient became hypotensive and obtunded with resp. pauses therefore admitted to ICU where patient was noted to have rapidly progressive encephalopathy , he became febrile with high likelihood of aspiration, therefore emergently intubated on 01/15 later noted to have witnessed seizure same day that abated using IV Ativan and Versed he was sedated with a combination of propofol and Versed had more breakthrough seizures 01/16, treated with Dilantin LP was attempted but unsuccessful due to significant lumbar degenerative disease a repeat CT head showed no acute abnormality, he was extubated 01/17, noted to have 2 episodes of generalized seizure again on 01/17 , also noted to have mild respiratory distress with tachypnea therefore remained in ICU and was treated for iatrogenic fluid overload and possible aspiration pneumonia , patient also noted to have generalized shaking, tremors therefore was placed on scheduled Ativan 0.5 mg q.8 hours,and was transferred to intermediate care unit on 01/18 on clear liquid diets, IV Zosyn, IV Keppra, all home medications were on hold. delirium tremens persistent mild tremors no recurrent seizures in last 48 hours history of daily alcohol use, will obtain care team consult, change scheduled Ativan to as needed generalized convulsions, patient had multiple episodes of seizures not typical of alcohol withdrawal seizures since occurred few days after he was admitted patient treated in ICU with intravenous Keppra and Dilantin patient evaluated by Neurology he recommend to treat patient with Keppra 500 mg twice daily since he has a high risk of epilepsy, he recommend to stop Keppra after a month if his EEG is normal. recommend outpatient follow-up with Neurology for EEG toxic/ metabolic encephalopathy resolved likely due to alcohol use patient more awake alert answering questions appropriately will advance diet to regular, less likely Wernicke encephalopathy will DC IV thiamine. acute hypoxic respiratory failure not on home oxygen wean oxygen as tolerated , developed mild iatrogenic edema treated with Lasix, a repeat chest x-ray 01/15 showed streaky airspace opacities likely subsegmental atelectasis will place on incentive spirometry, there was also concern for aspiration pneumonia treated with IV Zosyn, blood cultures x2 negative, sputum culture grew Haemophilus parainfluenza, beta lactamase +/pcn/amp resistant, will DC IV Zosyn and placed on by mouth Ceftin for 5 days acute kidney injury resolved with IV fluid likely pre renal due to GI loss Hypertension noted to have elevated blood pressure, will resume home medication valsartan, propranolol and clonidine hyperlipidemia will resume home medication Lipitor obstructive sleep apnea patient does not use CPAP at home generalized weakness patient seen by physical therapy they recommend short-term rehab however patient declined recommend out of bed to chair and ambulation as tolerated DVT prophylaxis on heparin code status full code Quality Stroke Does the patient have a stroke diagnosis?: No VTE Prior VTE?: No VTE Risk Level:: Medical - moderate - high VTE Device Contraindication: Treatment Not Indicated VTE Drug Contraindication: N/A - Med Ordered
[2022-01-19] MEDS: levETIRAcetam 500 MG TABLET PO (21:53)
[2022-01-20 03:13] VITALS: BP 165/96; PULSE 94; RESP 20; TEMP 37.2; O2SAT 96
[2022-01-20] MEDS: traZODone HCL 50 MG TABLET PO (04:05)
[2022-01-20] MEDS: LORazepam 0.5 MG TABLET PO (04:05)
--- NOTE | 2022-01-20 04:59 | P.EN_ITS ---
Event Note Date of Service: 01/20/22 Event Note: against medical advice discharge note: Patient around 04:30 mentioned that he wanted to leave the hospital. Patient is AO x3. But tremulous. Patient is explained about the importance of continuing alcohol withdrawal management. patient came in. Also spoke to the patient's about the patient's current health situation and importance of continuing the current treatment. Patient was explained about the risks of involved in interpreting the treatment which might even lead to worsening current situation, alcohol withdrawal seizures, delirium tremens, . Patient verbalized that he understood the risks. Signed AMA. Patient was recommended to avoid driving for 6 months of seizure-free period Per [facility] state law. Recommended neurology follow-up.
--- NOTE | 2022-01-20 07:25 | PC.NURSE ---
During beginning of shift, patient was sleeping in room. Patient would only get up to use the restroom, Around 4 AM, patient got up and started screaming. Nurse went to check in on patient. Patient was screaming about his hand being extremely swollen and squirting out liquid. Patient was having hallucination. Patient was given a dose of PRN ativan and one time dose of trazodone. Patient wanted to go home. Patient called his to poick him up. The came. The doctor came to speak to them. Dr ngem patient alert to make decision. Dr explained to patient and the danger of leaving [facility]. The patient and still agreed to leave. AMA paperwork was signed. IV was removed. Patient was escort out by hospital staff.
--- NOTE | 2022-01-20 15:59 | P.DS_ITS ---
DS: Providers Provider Date of Service: 01/20/22 Date of admission: 01/14/22 16:32 Primary care physician: Tessie Gracia NP Consults: 01/14/22 16:32 Consult to Nephrology Routine Consulting Provider: Eugenio Nascimento Reason for consultation: yady 01/19/22 08:20 Consult to Neurology Routine Consulting Provider: [facility] Reason for consultation: etoh wd seizure Has provider been notified: No 01/19/22 18:17 Consult to Care Team Routine Comment: Reason for consultation: etoh DS: Diagnosis Discharge Diagnosis (1) Aspiration pneumonitis: Status: Acute (2) Acute hypoxemic respiratory failure: Status: Resolved (3) Alcohol withdrawal seizure with delirium: Status: Resolved (4) Delirium tremens: Status: Acute (5) Metabolic encephalopathy: Status: Resolved (6) NASREEN (obstructive sleep apnea): DS: Summary Hospital Course Hospital Course: History of presenting illness Chief Complaint: ams 71M presented with ams. patient had been feeling unwell for about 2 days ptp. normally patient has about 10 drinks of wine/beer/liwuor daily, recently has been feeling ill, nauseous, vomitting, unable to maintain any po including alcohol. noticed patient was diaphoretic, confused, jittery so she brought him to ED. in ED patient was given 4mg total ativan, labs significnat for YADY with creatinine of 3.55. (was normal in 2019). patient himself is obtunded and cannot provide history. denies NSAID use, fevers, sick contacts. Hospital course 71-year-old chronic alcoholic? male presented? to emergency room with symptoms of not feeling well with nausea vomiting unable to take anything by mouth in the ER patient was noted to be confused, diaphoretic, head CT, abdominal CT showed no acute process but showed hepatic steatosis, patient in the emergency room was treated with Ativan patient became hypotensive and obtunded with resp. pauses? therefore admitted to ICU where patient was noted to have rapidly progressive encephalopathy , he became febrile with high likelihood of aspiration, therefore emergently intubated on 01/15? later noted to have? witnessed seizure same day that abated using IV Ativan and Versed he was sedated with a combination of propofol and Versed had more breakthrough seizures 01/16, treated with Dilantin LP was attempted but unsuccessful due to significant lumbar degenerative disease a repeat CT head showed no acute abnormality, he was extubated 01/17, noted to have? 2 episodes of generalized seizure again on 01/17 , also noted to have mild respiratory distress with tachypnea therefore remained in ICU? and was treated for iatrogenic fluid overload and possible aspiration pneumonia , patient also noted to have generalized shaking, tremors therefore was placed on scheduled Ativan 0.5 mg q.8 hours,and was transferred to intermediate care unit on 01/18 on clear liquid diets, IV Zosyn, IV Keppra, all home medications were on hold. delirium tremens? persistent mild tremors no recurrent seizures in last 48 hours , patient continued to have significant shakiness and tremors therefore recommended to stay in hospital continued treatment monitoring and care team evaluation but however patient decided to leave hospital against medical advice on 01/20 generalized? convulsions, patient had multiple episodes of seizures not typical of alcohol withdrawal seizures since occurred few days after he was admitted patient treated in ICU with intravenous Keppra and Dilantin patient evaluated by Neurology he recommend to treat patient with Keppra 500 mg twice daily since he has a high risk of epilepsy, he recommend to stop Keppra after a month if his EEG is normal, recommended to have outpatient repeat EEG with neurology. ?toxic/ metabolic encephalopathy resolved . ?acute hypoxic respiratory failure not on home oxygen wean oxygen as tolerated , developed mild iatrogenic edema treated with Lasix, repeat chest x-ray 01/15? showed streaky airspace opacities likely subsegmental atelectasis ? patient treated with IV Zosyn, blood cultures were negative sputum culture grew Haemophilus parainfluenza, beta lactamase +/pcn/amp resistant, therefore patient placed on Ceftin ? ?acute kidney injury resolved with IV fluid likely pre renal due to GI loss. ?Hypertension noted to have elevated blood pressure, Continue home medication valsartan, propranolol and clonidine ?hyperlipidemia continue Lipitor ?obstructive sleep apnea patient does not use CPAP at home, recommend to use CPAP as prescribed ?generalized weakness patient seen by physical therapy they recommend short-term rehab however patient declined and left against medical advice Time Spent with Patient Time attestation: Total time spent providing and/or coordinating discharge services: Discharge coordination time: Greater than 30 minutes Quality: Safe Use of Opioids Does Pt have an Active Cancer Diagnosis on the Problem List?: No Quality: Stroke Does the patient have a stroke diagnosis?: No Physical Exam Vital Signs: Vital Signs: Last Vital Signs Temp 99.0 F 01/20/22 03:13 Pulse 94 01/20/22 03:13 Resp 20 01/20/22 03:13 BP 165/96 H 01/20/22 03:13 Pulse Ox 96 01/20/22 03:13 BMI result Body Mass Index 30.0 Const: Other: General resting comfortably in no acute distress.? Neck? no JVD. CVS? regular rate rhythm, Respiratory lungs clear to auscultation, no respiratory distress, no wheeze, no rhonchi. Gastrointestinal abdomen soft, nontender, bowel sounds audible, Extremities no? edema. Neuro nonfocal , speech clear, bilateral hand tremors. Skin no rash psych appropriate affect DS: Data Data Completed and Pending Completed studies during hospitalization [Text1]: Procedures Detoxification Services for Substance Abuse Treatment (01/14/22) Insertion of Endotracheal Airway into Trachea, Via Natural or Artificial Opening Endoscopic (01/14/22) Respiratory Ventilation, 24-96 Consecutive Hours (01/14/22) Discharge Plan Discharge Patient Disposition: Left Against Medical Advice Discharge Diagnosis: Alcohol withdrawal seizure Toxic metabolic encephalopathy Acute hypoxic respiratory failure Aspiration pneumonitis Acute kidney injury Generalized weakness Referrals: Tessie Gracia, [facility] [Primary Care Provider] - 1 Week Discharge Medications: Continued tizanidine 4 mg tablet 4 mg PO BID propranolol 20 mg tablet 20 mg PO BID clonidine HCl 0.1 mg tablet 0.1 mg PO BID olmesartan 40 mg tablet 40 mg PO DAILY omeprazole 20 mg capsule,delayed release(DR/EC) 20 mg PO BID atorvastatin 40 mg tablet 40 mg PO DAILY finasteride 5 mg tablet 5 mg PO Q48H multivitamin Tablet 1 tab PO DAILY Bacillus coagulans 250 million cell tablet,chewable 250 cell PO DAILY baclofen 20 mg tablet 20 mg PO TID PRN (Reason: muscle spasticity) 30 Days Qty: 90 0RF Discharge Orders: Discharge Order (Routine); Ordered 02/22/22 Ordered By: Kevin Lyons Care Plan Goals: strongly recommend to abstain from alcohol take all medications as prescribed Health Concerns: alcohol abuse/obstructive sleep apnea Plan of Treatment: outpatient follow-up with primary care physician Assessment: as per discharge summary Discharge Date/Time: 01/20/22 07:37
== END 2022-01-20 07:37 | disposition left against medical advice (07) | DRG 208 ==
LOC: HO.ED 15:29 → HO.EDOVER 16:39 → HO.ICU 18:59 → HO.IMC 01-17 23:24 → HO.ICU 01-18 00:07 → HO.IMC 01-18 14:33
PROVIDERS: Internal Medicine; Internal Medicine Cardiovascular Disease; Physician Assistant; Physician Assistant Medical; Admitting Provider Anesthesiology; Emergency Provider Emergency Medicine; PCP Nurse Practitioner Family; Visit Provider Hospitalist
DX: J69.0 Pneumonitis due to inhalation of food and vomit (principal); G92.8 Other toxic encephalopathy; J96.01 Acute respiratory failure with hypoxia; E87.2 Acidosis; N17.9 Acute kidney failure, unspecified; F10.231 Alcohol dependence with withdrawal delirium; E51.2 Wernicke's encephalopathy; K70.10 Alcoholic hepatitis without ascites; E78.5 Hyperlipidemia, unspecified; G47.33 Obstructive sleep apnea (adult) (pediatric); K21.9 Gastro-esophageal reflux disease without esophagitis; G89.29 Other chronic pain; E86.0 Dehydration; I95.9 Hypotension, unspecified; Y90.0 Blood alcohol level of less than 20 mg/100 ml; E86.1 Hypovolemia; R56.9 Unspecified convulsions; N40.0 Benign prostatic hyperplasia without lower urinary tract symptoms; Z20.822 Contact with and (suspected) exposure to COVID-19; Z87.891 Personal history of nicotine dependence; Z88.5 Allergy status to narcotic agent; Z79.899 Other long term (current) drug therapy
CPT/HCPCS: 36415; 70450; 71045; 72131; 72148; 74176; 76775; 80048; 80053; 80143; 80179; 80202; 80307; 82077; 82140; 82436; 82550; 82803; 83036; 83605; 83735; 83880; 83935; 84100; 84133; 84145; 84156; 84300; 84443; 84484; 85025; 85027; 85610; 86140; 86704; 86706; 86709; 86803; 87040; 87070; 87077; 87185; 87205; 87340; 87635; 93005; 94002; 94003; 94640; 94799; 96361; 96374; 96375; 96376; 97162; 97530; 99285; 99291; C1758; J1940; J1953; J2060; J2250; J2405; J2543; J3370; J3411

== ENCOUNTER → 2022-01-23 13:06 | Outpatient (BNVA) | payer MEDICARE, SELFPAY | PROVIDERS: PCP Nurse Practitioner Family; Visit Provider Nurse Practitioner Family | DX: M43.06 Spondylolysis, lumbar region (principal); M62.830 Muscle spasm of back; M51.36 Other intervertebral disc degeneration, lumbar region; G89.29 Other chronic pain; M54.9 Dorsalgia, unspecified; Z86.59 Personal history of other mental and behavioral disorders; Z87.898 Personal history of other specified conditions | CPT/HCPCS: 99212 ==